=== PATIENT | female | born 1990 | race Asian ===

== ENCOUNTER 2021-05-07 11:59 | Emergency (ER) | payer OTHER, SELFPAY ==
[2021-05-07 12:14] VITALS: BP 126/64; PULSE 83; RESP 14; TEMP 36.7; O2SAT 100; BMI 22.9
--- NOTE | 2021-05-07 12:15 | DI.US.S_ITS ---
PROCEDURE: US OB <= 14 WEEKS FETUS INDICATIONS: BLEEDING AND CRAMPING OUTSIDE/PRIOR DATING DATA: Last menstrual period (LMP): Unknown. First dating scan (date and location): [facility]; May 07, 2021. Estimated date of delivery (CHANCE) from first dating scan: January 01, 2022. The calculations are made using the ultrasound CHANCE of January 01, 2022. TECHNIQUE: Real-time scanning was performed of the fetus and maternal pelvic organs, with image documentation. Endovaginal scanning was also performed to better visualize the fetus and maternal ovaries. COMPARISON: None. FINDINGS: A 0.8 x 0.9 x 0.4 cm hypoechoic area is seen adjacent to the gestational sac, most consistent with a subchorionic hemorrhage. The gestational sac appears to be in the lower uterine segment. Embryo: Mean crown-rump length measures 2.4 mm, compatible with a 5 week, 6 day gestation Heart rate: 80 beats per minute Maternal organs: Hypoechoic lesion within the right ovary, favored to represent a corpus luteal cyst. IMPRESSION: 1. Live intrauterine gestation as detailed above, concerning for early failure. Consider short-term sonographic follow-up as well as correlation with serial quantitative beta HCGs. We strive to produce accurate, complete, and clear reports of imaging services. To assist us in improving patient care, this report was composed using standard report templates and voice recognition software. Therefore, it may contain abnormal punctuation, insertions and/or omissions. Occasional wrong-word or sound-alike substitutions may occur. Though we review the report and make efforts to correct it, we do recommend that the report be read carefully in proper context to recognize any text inaccuracies. Dictated by: Tao Rodriguez M.D. on 05/07/2021 at 13:05 Approved by: Tao Rodriguez M.D. on 05/07/2021 at 13:10
[2021-05-07 12:46] LABS: Add Manual Diff / Slide Review NO; Basophils Absolute Auto 0 /uL (0-100); Basophils Percent Auto 0.4 % (0-2); Eosinophils Absolute Auto 100 /uL (0-450); Eosinophils Percent Auto 1.2 % (2-4); Hematocrit 39.4 % (36-46); Hemoglobin 13.5 g/dL (12.0-16.0); Lymphocytes Absolute Auto 2100 /uL (1100-4500); Lymphocytes Percent Auto 23.4 % (25-40); Mean Corpuscular HGB Conc 34.3 % (30-36); Mean Corpuscular Hemoglobin 30.9 PG (26-34); Mean Corpuscular Volume 90.1 fL (80-100); Monocytes Absolute Auto 600 /uL (0-900); Monocytes Percent Auto 6.9 % (3-14); Neutrophils Absolute Auto 6000 /uL (1500-7000); Neutrophils Percent Auto 68.1 % (50-75); Platelet Count 306 X10^3/uL (150-400); Red Blood Cell Count 4.38 X10^6/uL (4.0-5.2); Red Cell Distribution Width 13.4 % (11.6-14.8); White Blood Cell Count 8.8 X10^3/uL (4.5-11.0)
[2021-05-07 13:04] LABS: Alanine Aminotransferase 19 IU/L (<35); Albumin 4.8 g/dL (3.5-5.0); Albumin Globulin Ratio 1.2 (1.0-2.8); Alkaline Phosphatase 40 U/L (38-126); Aspartate Aminotransferase 25 IU/L (14-36); Bilirubin Total 0.2 mg/dL (0.2-1.3); Blood Urea Nitrogen 11 mg/dL (7-17); Calcium 9.5 mg/dL (8.4-10.2); Carbon Dioxide 28 mmol/L (22-32); Chloride 102 mmol/L (98-107); Estimated Glomerular Filt Rate > 60.0 mL/min (>60); Globulin 3.9 g/dL (1.7-4.1); Glucose 92 mg/dL (70-100); HEMOLYSIS < 15 (0-50); Potassium 3.8 mmol/L (3.4-5.1); Sodium 136 mmol/L (137-145); Total Protein 8.7 g/dL (6.3-8.2)
[2021-05-07 13:45] LABS: HCG Quantitative /Beta subunit 13503 mIU/mL
--- NOTE | 2021-05-07 15:04 | ED_ITS ---
HPI - Female Genitourinary General Chief complaint: Vaginal Bleeding Stated complaint: 6 weeks /spotting last 3 days Time Seen by Provider: 05/07/21 15:03 Source: patient Mode of arrival: Ambulatory History of Present Illness HPI Narrative: Patient is a 31-year-old female currently, about 6 weeks , presenting with vaginal spotting and mild cramping. She usually was seen on the face is who recommended that she go for further evaluation. She says that she is having some spotting when she wipes. No significant cramping. She has been feeling nauseous but no significant vomiting. Related Data Allergies Allergy/AdvReac Type Severity Reaction Status Date / Time No Known Drug Allergies Allergy Verified 05/07/21 12:17 Review of Systems Review of Systems Narrative: GENERAL: Denies chills, fatigue, malaise, fever, sweats, travel HEENT: Denies sinus pain, ear pain, sore throat, difficulty swallowing, neck pain RESPIRATORY: Denies dyspnea, cough, wheezing, hemoptysis, sputum. CARDIOVASCULAR: Denies chest pain, palpitations, orthopnea, edema GASTROINTESTINAL: Denies nausea, vomiting, abdominal pain, diarrhea, constipation, melena. 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 MUSCULOSKELETAL: Denies weakness, joint pain, or bony pain SKIN: No rash, no erythema, no pruritus NEUROLOGIC: Denies weakness, dizziness, headache, numbness, change in speech, confusion PSYCHIATRIC: No concerning psychosocial issues. 12 point review of systems is negative except for those stated above and HPI Patient History alcohol intake frequency: holidays/special occasions only Substance Use Type: does not use Exam Initial Vital Signs Initial Vital Signs: Vital Signs Temperature 98.0 F 05/07/21 12:14 Pulse Rate 83 05/07/21 12:14 Respiratory Rate 14 05/07/21 12:14 Blood Pressure 126/64 05/07/21 12:14 Pulse Oximetry 100 05/07/21 12:14 GENERAL: Alert well-appearing 31-year-old female HEENT: Head atraumatic,EOMI, pupils reactive, face symmetric, [moist] mucous membranes CARDIOVASCULAR: Regular rate and rhythm without murmurs, rubs or gallops. RESPIRATORY: Breath sounds equal bilaterally, no wheezes rales or rhonchi. ABDOMEN: Soft, nontender. Normoactive bowel sounds all 4 quadrants. No guarding or rebound. EXTREMITIES: Normal range of motion, no clubbing or edema. Neurovascularly intact NEUROLOGICAL: Alert and oriented x4.Normal gait and speech. SKIN: Warm, dry, no laceration, no petechiae, no rashes or lesions. Course Orders Ordered: ED Orders 05/07/21 12:15 US OB <= 14 weeks fetus Stat 05/07/21 12:30 ABO RH Type Stat Complete Blood Count AUTO DIFF Stat Comprehensive Metabolic Panel Stat HCG Quantitative /Beta subunit Stat Vital Signs Vital signs: Vital Signs - 8 hr 05/07/21 12:14 05/07/21 15:29 Temperature 98.0 F Pulse Rate 83 82 Respiratory Rate 14 18 Blood Pressure 126/64 117/62 Pulse Oximetry 100 100 MDM - Female Genitourinary Lab Data Result diagrams: 05/07/21 12:30 05/07/21 12:30 Labs: Lab Results 05/07/21 05/07/21 05/07/21 Range/Units 12:30 12:30 12:30 WBC 8.8 (4.5-11.0) X10^3/uL RBC 4.38 (4.0-5.2) X10^6/uL Hgb 13.5 (12.0-16.0) g/dL Hct 39.4 (36-46) % MCV 90.1 (80-100) fL MCH 30.9 (26-34) PG MCHC 34.3 (30-36) % RDW 13.4 (11.6-14.8) % Plt Count 306 (150-400) X10^3/uL Neut % (Auto) 68.1 (50-75) % Lymph % (Auto) 23.4 L (25-40) % [place] % (Auto) 6.9 (3-14) % Eos % (Auto) 1.2 L (2-4) % Baso % (Auto) 0.4 (0-2) % Neut # (Auto) 6000 (5719-7198) /uL Lymph # (Auto) 2100 (8146-5129) /uL [place] # (Auto) 600 (0-900) /uL Eos # (Auto) 100 (0-450) /uL Baso # (Auto) 0 (0-100) /uL Sodium 136 L (137-145) mmol/L Potassium 3.8 (3.4-5.1) mmol/L Chloride 102 (98-107) mmol/L Carbon Dioxide 28 (22-32) mmol/L BUN 11 (7-17) mg/dL Creatinine 0.58 (0.52-1.04) mg/dL Estimated GFR > 60.0 (>60) mL/min BUN/Creatinine Ratio 19.0 (6-22) Glucose 92 (70-100) mg/dL Calcium 9.5 (8.4-10.2) mg/dL Total Bilirubin 0.2 (0.2-1.3) mg/dL AST 25 (14-36) IU/L ALT 19 (<35) IU/L Alkaline Phosphatase 40 (38-126) U/L Total Protein 8.7 H (6.3-8.2) g/dL Albumin 4.8 (3.5-5.0) g/dL Globulin 3.9 (1.7-4.1) g/dL Albumin/Globulin Ratio 1.2 (1.0-2.8) HCG, Quant 53090 mIU/mL Blood Type A Positive Point of Care Testing Test Results Positive Urine Dip Bedside Urine Glucose Negative Bedside Urine Bilirubin - Negative Bedside Urine Ketone - Negative Urine Specific Rydal 1.010 Bedside Urine Occult Blood - Negative Bedside Urine pH 6.0 Bedside Urine Protein - Negative Bedside Urine Urobilinogen - Negative Bedside Urine Nitrite - Negative Bedside Urine Leukocytes - Negative Esterase Imaging Data US - OB: Radiologist's Impression: PROCEDURE:? US OB <= 14 WEEKS FETUS ? INDICATIONS:? BLEEDING AND CRAMPING ? OUTSIDE/PRIOR DATING DATA:? Last menstrual period (LMP):? Unknown.? First dating scan (date and location):? [facility]; May 07, 2021.? Estimated date of delivery (CHANCE) from first dating scan:? January 01, 2022. The calculations are made using the ultrasound CHANCE of January 01, 2022. ? TECHNIQUE:? Real-time scanning was performed of the fetus and maternal pelvic organs, with image documentation.? Endovaginal scanning was also performed to better visualize the fetus and maternal ovaries.? ? COMPARISON:? None. ? FINDINGS:? A 0.8 x 0.9 x 0.4 cm hypoechoic area is seen adjacent to the gestational sac, most consistent with a subchorionic hemorrhage.? The gestational sac appears to be in the lower uterine segment. ? Embryo:? Mean crown-rump length measures 2.4 mm, compatible with a 5 week, 6 day gestation Heart rate:? 80 beats per minute ? Maternal organs:? Hypoechoic lesion within the right ovary, favored to represent a corpus luteal cyst. ? ? IMPRESSION:? 1. Live intrauterine gestation as detailed above, concerning for early failure. ?Consider short-term sonographic follow-up as well as correlation with serial quantitative beta HCGs. ? We strive to produce accurate, complete, and clear reports of imaging services. To assist us in improving patient care, this report was composed using standard report templates and voice recognition software. Therefore, it may contain abnormal punctuation, insertions and/or omissions. Occasional wrong-word or sound-alike substitutions may occur. Though we review the report and make efforts to correct it, we do recommend that the report be read carefully in proper context to recognize any text inaccuracies. ? Dictated by: Tao Rodriguez M.D. on 05/07/2021 at 13:05 ? ? MDM Narrative Medical decision making narrative: Patient is having some mild cramping hCG elevated at 13,000 thousand. However ultrasound does show bradycardia and possible early failure. I have discussed this with her. I recommend that she have close outpatient follow-up. She has actually been seen on the face. This is a wanted though a surprise she was told that she would have difficulty getting . Discussion with her on when to return to ED. All questions have been answered. Discharge Plan Departure Patient Disposition: Home Clinical Impression: Threatened Instructions: Threatened Miscarriage Activity Restrictions/Additional Instructions: [id number] *You have been diagnosed with threatened miscarriage *What to do: It is possibly of early miscarriage however it is impossible to tell at this time. 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
[2021-05-07 15:29] VITALS: BP 117/62; PULSE 82; RESP 18; O2SAT 100
== END 2021-05-07 15:30 | disposition home or self-care (01) ==
PROVIDERS: Emergency Provider Emergency Medicine
DX: O20.0 Threatened abortion (principal); O36.8310 Maternal care for abnormalities of the fetal heart rate or rhythm, first trimester, not applicable or unspecified; Z3A.01 Less than 8 weeks gestation of pregnancy
CPT/HCPCS: 36415; 76801; 76817; 80053; 81003; 81025; 84702; 85025; 86900; 86901; 99282; 99283

== ENCOUNTER → 2021-08-08 09:06 | Outpatient (CLI) | payer OTHER, SELFPAY ==
[2021-08-10 20:57] LABS: AFP, Serum 66.6 ng/mL (.); Inhibin A, Dimeric 135.54 pg/mL (.); Inhibin A, MoM 0.71 (.); Maternal Ethnicity Other (.); Maternal Weight 128 lbs (.); Number of Fetuses No (.); OSBR Risk 1 IN 10000 (.); Results Report (.); Test Results *Screen Negative* (.); hCG, MoM 0.99 (.); hCG, Serum 29035 mIU/mL (.)
== END ==
PROVIDERS: Referring Provider Obstetrics & Gynecology; Visit Provider Obstetrics & Gynecology
DX: Z34.02 Encounter for supervision of normal first pregnancy, second trimester (principal)
CPT/HCPCS: 36415; 82105; 82677; 84702; 86336

== ENCOUNTER → 2021-10-01 16:02 | Outpatient (CLI) | payer OTHER, SELFPAY ==
[2021-10-01 17:26] LABS: Hematocrit 34.3 % (36-46); Hemoglobin 11.7 g/dL (12.0-16.0)
[2021-10-01 17:58] LABS: GTT (PREG) 1 Hour PP 50gm Dose 155 mg/dL (76-139)
== END ==
PROVIDERS: PCP Student in an Organized Health Care Education/Training Program; Referring Provider Obstetrics & Gynecology; Visit Provider Obstetrics & Gynecology
DX: Z34.02 Encounter for supervision of normal first pregnancy, second trimester (principal); Z3A.26 26 weeks gestation of pregnancy
CPT/HCPCS: 36415; 82950; 85014; 85018; 86850

== ENCOUNTER 2021-10-03 14:58 | Inpatient (IN) | payer OTHER, SELFPAY ==
[2021-10-03] VITALS (9 sets, daily range): BP systolic 104–112; BP diastolic 55–65; PULSE 85–104; RESP 14–26; TEMP 36.1–36.9; O2SAT 98–100; BMI 24.7
[2021-10-03 15:35] LABS: COVID19 -Nasal RAPID Negative (Negative)
--- NOTE | 2021-10-03 15:59 | DI.US.S_ITS ---
PROCEDURE: US OB LIMITED INDICATIONS: CX, GROWTH, PLACENTA OUTSIDE/PRIOR DATING DATA: Last menstrual period (LMP): Unknown. LMP-based estimated date of delivery (CHANCE): Not applicable. First dating scan (date and location): May 07, 2021. Estimated date of delivery (CHANCE) from first dating scan: January 01, 2022. TECHNIQUE: Real-time scanning was performed of the fetus, with image documentation and biometric measurements. Endovaginal scanning: Not performed COMPARISON: None. FINDINGS: General: A single living intrauterine gestation is present. Presentation: Vertex. Placenta: Placental position is posterior , without previa. There is low lying placenta with the edge of the placenta to the internal cervical os measuring approximately 0.8 cm. Amniotic fluid index: 13.6 cm, normal range is 5-24 cm. Single deepest vertical pocket is 4.2 cm. heart rate: 158 beats per minute. Maternal cervical canal: 4 cm long. Normal lower limit is 2.5 cm. biometrics: Biparietal diameter: 6.8 cm, 27 weeks and 2 days Head circumference: 25.6 cm, 27 weeks and 6 days Abdominal circumference: 23.2 cm, 27 weeks and 4 days Femur length: 5.3 cm, 28 weeks and 0 days Clinically estimated gestational age: 27 weeks and 1 day Composite gestational age from present scan: 27 weeks and 5 days Estimated weight and percentile: 1115 g which correlates with the 61st percentile based off gestational age. Other: Right maternal ovary is unremarkable. Left maternal ovary is not visualized. Mild right renal pelviectasis of the maternal kidney. Small renal cyst measuring 8 mm. IMPRESSION: Single living intrauterine gestation with estimated sonographic gestational age of approximately 27 weeks and 5 days. Estimated weight of approximately 1115 g which correlates with the 61st percentile based off gestational age. No evidence for placenta previa; however, there is a low lying placenta with the edge of the placenta to the internal cervical os measuring approximately 0.8 cm. Mild right renal pelviectasis of the maternal kidney. Maternal cervical length measures 4.0 cm. Four-quadrant EMILEE measures 13.6 cm. Largest vertical pocket measures 4.2 cm. We strive to produce accurate, complete, and clear reports of imaging services. To assist us in improving patient care, this report was composed using standard report templates and voice recognition software. Therefore, it may contain abnormal punctuation, insertions and/or omissions. Occasional wrong-word or sound-alike substitutions may occur. Though we review the report and make efforts to correct it, we do recommend that the report be read carefully in proper context to recognize any text inaccuracies. Dictated by: Dexter Montez M.D. on 10/03/2021 at 17:13 Approved by: Dexter Montez M.D. on 10/03/2021 at 17:23
[2021-10-03] MEDS: SODIUM CHLORIDE 0.9% 1,000 ML 1000 ML IV ×2 (16:03→17:27)
[2021-10-03 16:16] LABS: Add Manual Diff / Slide Review NO; Basophils Absolute Auto 0 /uL (0-100); Basophils Percent Auto 0.2 % (0-2); Eosinophils Absolute Auto 0 /uL (0-450); Eosinophils Percent Auto 0.1 % (2-4); Hematocrit 34.2 % (36-46); Hemoglobin 11.7 g/dL (12.0-16.0); Lymphocytes Absolute Auto 700 /uL (1100-4500); Lymphocytes Percent Auto 4.3 % (25-40); Mean Corpuscular HGB Conc 34.1 % (30-36); Mean Corpuscular Hemoglobin 30.1 PG (26-34); Mean Corpuscular Volume 88.2 fL (80-100); Monocytes Absolute Auto 500 /uL (0-900); Monocytes Percent Auto 2.8 % (3-14); Neutrophils Absolute Auto 15200 /uL (1500-7000); Neutrophils Percent Auto 92.6 % (50-75); Platelet Count 217 X10^3/uL (150-400); Red Blood Cell Count 3.88 X10^6/uL (4.0-5.2); Red Cell Distribution Width 13.6 % (11.6-14.8); White Blood Cell Count 16.4 X10^3/uL (4.5-11.0)
[2021-10-03 16:22] LABS: Creatine Kinase 32 U/L (30-135)
[2021-10-03 16:24] LABS: Alanine Aminotransferase 16 IU/L (<35); Albumin 4.1 g/dL (3.5-5.0); Albumin Globulin Ratio 1.2 (1.0-2.8); Alkaline Phosphatase 66 U/L (38-126); Aspartate Aminotransferase 26 IU/L (14-36); BUN Creatinine Ratio 13.2 (6-22); Bilirubin Total 0.3 mg/dL (0.2-1.3); Blood Urea Nitrogen 7 mg/dL (7-17); Carbon Dioxide 22 mmol/L (22-32); Chloride 101 mmol/L (98-107); Estimated Glomerular Filt Rate > 60 mL/min (>60); Globulin 3.4 g/dL (1.7-4.1); Glucose 136 mg/dL (70-100); HEMOLYSIS < 15 (0-50); Magnesium 1.8 mg/dL (1.6-2.3); Potassium 3.8 mmol/L (3.4-5.1); Sodium 133 mmol/L (137-145); Total Protein 7.5 g/dL (6.3-8.2)
[2021-10-03] MEDS: ACETAMINOPHEN 325 MG TABLET 975 MG PO ×2 (16:28→22:15)
[2021-10-03 16:34] LABS: Troponin I < 0.012 ng/mL (0.01-0.034)
--- NOTE | 2021-10-03 16:35 | ED_ITS ---
HPI - <KIRK Miramontes - Last Filed: 10/03/21 18:55> General Chief complaint: Shortness of Breath/Dyspnea Stated complaint: Low Blood Sugar, Tachy Time Seen by Provider: 10/03/21 15:48 Source: patient and family Mode of arrival: Ambulatory Limitations: no limitations History of Present Illness HPI Narrative: This is a 31-year-old female who is 27 weeks presents to the emergency department complaining of fatigue, chills, right-sided flank pain which started earlier today with an episode of diaphoresis and tachycardia while in [facility] being evaluated today. Patient denies any dysuria, recent illness, states that she has felt chills, bloating, became short of breath at 1040 in the morning with cold fingertips and states that she feels anxious and h er heart rate is fast. Her primary care provider is Ivette Wasserman, her OBGYN is Dr. Colon. [facility] called and mentioned concern for PE. Patient endorses shallow breathing, denies any wheezing or difficulty breathing, states that she feels fatigued, and has new right-sided flank pain. She denies any abnormal vaginal discharge, states that it is clear, she denies any dysuria, urinary frequency, urgency, nausea or vomiting, other back pain, Related Data Home Medications Medication Instructions Recorded Confirmed prenat.vits,jason,[id number] 1 tab PO DAILY 08/07/21 10/03/21 triamcinolone acetonide 0.1 % 1 applic TOPICAL DAILY 08/08/21 10/03/21 topical cream Previous Rx's Medication Instructions Recorded ampicillin 500 mg capsule 500 mg PO QID #28 cap 10/04/21 Allergies Allergy/AdvReac Type Severity Reaction Status Date / Time No Known Drug Allergies Allergy Verified 09/17/21 11:43 Review of Systems <KIRK Miramontes - Last Filed: 10/03/21 18:55> Review of Systems Narrative: General: denies fever, endorses having chills which started at 1040 Head/Neck: Endorses headache, denies neck pain Eyes: denies visual changes, eye pain Cardio: denies chest pain, palpitations Respiratory: Endorses shallow breathing, denies difficulty breathing, wheezing, or cough GI: denies abdominal pain, nausea, vomiting, or diarrhea, endorses right flank pain with palpation : denies dysuria, hematuria MSK: denies new joint pain, muscle weakness or swelling Skin: denies rash, itching or wound, denies any extremity swelling which is in her Neuro: denies numbness, tingling, dizziness Exam <KIRK Miramontes - Last Filed: 10/03/21 18:55> Narrative Exam Narrative: Independently reviewed vitals signs and nursing notes. General: Awake, alert, nontoxic, no cardiorespiratory distress, anxious Head/Neck: Atraumatic, neck supple, face is flushed Eyes: EOMI, conjunctiva normal, vision is grossly normal and equal bilaterally Nose: nares patent, no rhinorrhea Mouth/Throat: moist mucus membranes, posterior pharynx without erythema or lesion Cardio: Sinus tachycardia without ectopy, no peripheral edema, warm extremities, brisk cap refill Respiratory: respirations unlabored without wheezing, stridor, or rales. No retractions, hypoxia or tachypnea GI: Abdomen soft, gravid, fundus above the umbilicus, nontender to palpation x4 quadrants, no guarding or rebound tenderness, right flank tenderness to palpation MSK: Moves all extremities, neurovascularly intact, range of motion without de ficit Skin: Normal capillary refill, no rash, cheeks are flushed Neuro: Normal speech and cognition, normal gait, patient is anxious and tearful but pleasant and cooperative Initial Vital Signs Initial Vital Signs: Vital Signs Temperature 97 F L 10/03/21 15:02 Pulse Rate 100 H 10/03/21 15:02 Respiratory Rate 26 H 10/03/21 15:02 Blood Pressure 111/65 10/03/21 15:02 Pulse Oximetry 99 10/03/21 15:02 <Chacha Downs DO - Last Filed: 10/05/21 18:56> Initial Vital Signs Initial Vital Signs: Vital Signs Temperature 97 F L 10/03/21 15:02 Pulse Rate 100 H 10/03/21 15:02 Respiratory Rate 26 H 10/03/21 15:02 Blood Pressure 111/65 10/03/21 15:02 Pulse Oximetry 99 10/03/21 15:02 Course <KIRK Miramontes - Last Filed: 10/03/21 18:55> Course Course Narrative: Consultation with Dr. Restrepo who is on-call for Dr. Colon and will be admitting for pyelonephritis, IV antibiotics, and care, she accepts patient for admission for pyelonephritis. She will follow up on labs, orders, and patient will be admitted to [facility] floor under Dr. Restrepo for pyelonephritis. Orders Ordered: Discontinued Medications Acetaminophen (Acetaminophen 325 Mg Tablet) 975 mg PO NOW ONE Stop: 10/03/21 16:00 Last Admin: 10/03/21 16:28 Dose: 975 mg Documented by: NAOMIEOR Acetaminophen (Acetaminophen 325 Mg Tablet) 975 mg PO Q8H PRN PRN Reason: pain Last Admin: 10/04/21 09:18 Dose: 975 mg Documented by: Admin: 10/03/21 22:15 Dose: 975 mg Documented by: RUSLAN Sodium Chloride (Normal Saline 0.9%) 1,000 mls @ 1,000 mls/hr IV BOLUS ONE Stop: 10/03/21 16:58 Last Infusion: 10/03/21 17:12 Dose: 0 mls/hr Documented by: Admin: 10/03/21 16:03 Dose: 1,000 mls/hr Documented by: ATAYLOR Sodium Chloride (Normal Saline 0.9%) 1,000 mls @ 1,000 mls/hr IV BOLUS ONE Stop: 10/03/21 16:58 Last Infusion: 10/03/21 18:45 Dose: 0 mls/hr Documented by: Admin: 10/03/21 17:27 Dose: 1,000 mls/hr Documented by: ATAYLOR Ceftriaxone Sodium 1,000 mg/ (Sodium Chloride) 100 mls @ 200 mls/hr IV NOW ONE Stop: 10/03/21 16:51 Last Infusion: 10/03/21 18:50 Dose: 0 mls/hr Documented by: Admin: 10/03/21 18:14 Dose: 200 mls/hr Documented by: ATAYLOR Ceftriaxone Sodium 1,000 mg/ (Sodium Chloride) 100 mls @ 200 mls/hr IV Q24H CHERYL Last Admin: 10/03/21 19:24 Dose: Not Given Documented by: ATAYLOR Lactated Ringer's (Lactated Ringers) 1,000 mls @ 125 mls/hr IV CONT CHERYL Last Admin: 10/04/21 14:11 Dose: 125 mls/hr Documented by: Infusion: 10/04/21 13:59 Dose: 125 mls/hr Documented by: Admin: 10/04/21 05:59 Dose: 125 mls/hr Documented by: Infusion: 10/04/21 04:24 Dose: 125 mls/hr Documented by: Admin: 10/03/21 20:24 Dose: 125 mls/hr Documented by: GORDON Ceftriaxone Sodium 1,000 mg/ (Sodium Chloride) 100 mls @ 200 mls/hr IV Q24H [facility] Last Admin: 10/04/21 17:28 Dose: 200 mls/hr Documented by: LAURA Vit/Calcium/Iron/Folic Ac ( Vit,Calc/Iron/Folic 1 Tablet) 1 tab PO DAILY [facility] Last Admin: 10/04/21 09:18 Dose: 1 tab Documented by: LAURA Sodium Chloride (Sodium Chloride 0.9% Flush) 10 ml IV PRN PRN PRN Reason: Flush Sodium Chloride (Sodium Chloride 0.9% Flush) 10 ml IV BID [facility] Vital Signs Vital signs: Vital Signs - 8 hr 10/03/21 15:02 Temperature 97 F L Pulse Rate 100 H Respiratory Rate 26 H Blood Pressure 111/65 Pulse Oximetry 99 <Chacha Downs DO - Last Filed: 10/05/21 18:56> Orders Ordered: Discontinued Medications Acetaminophen (Acetaminophen 325 Mg Tablet) 975 mg PO NOW ONE Stop: 10/03/21 16:00 Last Admin: 10/03/21 16:28 Dose: 975 mg Documented by: DEN Acetaminophen (Acetaminophen 325 Mg Tablet) 975 mg PO Q8H PRN PRN Reason: pain Last Admin: 10/04/21 09:18 Dose: 975 mg Documented by: Admin: 10/03/21 22:15 Dose: 975 mg Documented by: RUSLAN Sodium Chloride (Normal Saline 0.9%) 1,000 mls @ 1,000 mls/hr IV BOLUS ONE Stop: 10/03/21 16:58 Last Infusion: 10/03/21 17:12 Dose: 0 mls/hr Documented by: Admin: 10/03/21 16:03 Dose: 1,000 mls/hr Documented by: ATAABBEYOR Sodium Chloride (Normal Saline 0.9%) 1,000 mls @ 1,000 mls/hr IV BOLUS ONE Stop: 10/03/21 16:58 Last Infusion: 10/03/21 18:45 Dose: 0 mls/hr Documented by: Admin: 10/03/21 17:27 Dose: 1,000 mls/hr Documented by: ATAABBEYOR Ceftriaxone Sodium 1,000 mg/ (Sodium Chloride) 100 mls @ 200 mls/hr IV NOW ONE Stop: 10/03/21 16:51 Last Infusion: 10/03/21 18:50 Dose: 0 mls/hr Documented by: Admin: 10/03/21 18:14 Dose: 200 mls/hr Documented by: NAOMIEOR Ceftriaxone Sodium 1,000 mg/ (Sodium Chloride) 100 mls @ 200 mls/hr IV Q24H [facility] Last Admin: 10/03/21 19:24 Dose: Not Given Documented by: DEN Lactated Ringer's (Lactated Ringers) 1,000 mls @ 125 mls/hr IV CONT [facility] Last Admin: 10/04/21 14:11 Dose: 125 mls/hr Documented by: Infusion: 10/04/21 13:59 Dose: 125 mls/hr Documented by: Admin: 10/04/21 05:59 Dose: 125 mls/hr Documented by: Infusion: 10/04/21 04:24 Dose: 125 mls/hr Documented by: Admin: 10/03/21 20:24 Dose: 125 mls/hr Documented by: GORDON Ceftriaxone Sodium 1,000 mg/ (Sodium Chloride) 100 mls @ 200 mls/hr IV Q24H [facility] Last Admin: 10/04/21 17:28 Dose: 200 mls/hr Documented by: LAURA Vit/Calcium/Iron/Folic Ac ( Vit,Calc/Iron/Folic 1 Tablet) 1 tab PO DAILY [facility] Last Admin: 10/04/21 09:18 Dose: 1 tab Documented by: LAURA Sodium Chloride (Sodium Chloride 0.9% Flush) 10 ml IV PRN PRN PRN Reason: Flush Sodium Chloride (Sodium Chloride 0.9% Flush) 10 ml IV BID CHERYL Vital Signs Vital signs: Vital Signs - 8 hr 10/03/21 15:02 Temperature 97 F L Pulse Rate 100 H Respiratory Rate 26 H Blood Pressure 111/65 Pulse Oximetry 99 MDM - OB/Uterine Contractions <KIRK Miramontes - Last Filed: 10/03/21 18:55> Lab Data Result diagrams: 10/04/21 06:38 10/04/21 06:38 Labs: Lab Results 10/03/21 10/03/21 10/03/21 Range/Units 15:12 15:53 15:53 WBC 16.4 H (4.5-11.0) X10^3/uL RBC 3.88 L (4.0-5.2) X10^6/uL Hgb 11.7 L (12.0-16.0) g/dL Hct 34.2 L (36-46) % MCV 88.2 (80-100) fL MCH 30.1 (26-34) PG MCHC 34.1 (30-36) % RDW 13.6 (11.6-14.8) % Plt Count 217 (150-400) X10^3/uL Neut % (Auto) 92.6 H (50-75) % Lymph % (Auto) 4.3 L (25-40) % [place] % (Auto) 2.8 L (3-14) % Eos % (Auto) 0.1 L (2-4) % Baso % (Auto) 0.2 (0-2) % Neut # (Auto) 43260 H (1025-8349) /uL Lymph # (Auto) 700 L (1353-5836) /uL [place] # (Auto) 500 (0-900) /uL Eos # (Auto) 0 (0-450) /uL Baso # (Auto) 0 (0-100) /uL D-Dimer (<230) ng/mL Sodium 133 L (137-145) mmol/L Potassium 3.8 (3.4-5.1) mmol/L Chloride 101 (98-107) mmol/L Carbon Dioxide 22 (22-32) mmol/L BUN 7 (7-17) mg/dL Creatinine 0.53 (0.52-1.04) mg/dL Estimated GFR > 60 (>60) mL/min BUN/Creatinine Ratio 13.2 (6-22) Glucose 136 H (70-100) mg/dL Lactate (0.7-2.1) mmol/L Calcium 9.0 (8.4-10.2) mg/dL Magnesium 1.8 (1.6-2.3) mg/dL Total Bilirubin 0.3 (0.2-1.3) mg/dL AST 26 (14-36) IU/L ALT 16 (<35) IU/L Alkaline Phosphatase 66 (38-126) U/L Total Creatine Kinase (30-135) U/L CK-MB (CK-2) CK-MB (CK-2) Rel Index Troponin I (0.01-0.034) ng/mL C-Reactive Protein (<1.0) mg/dL NT-Pro-B Natriuret Pep (<125) pg/mL Total Protein 7.5 (6.3-8.2) g/dL Albumin 4.1 (3.5-5.0) g/dL Globulin 3.4 (1.7-4.1) g/dL Albumin/Globulin Ratio 1.2 (1.0-2.8) Procalcitonin (<0.5) ng/mL Urine Color Urine Appearance Urine pH (4.5-8.0) Ur Specific [place] (1.000-1.035) Urine Protein (Negative) Urine Glucose (UA) (Negative) g/dL Urine Ketones (NEGATIVE) Urine Occult Blood (Negative) Urine Nitrate (Negative) Urine Bilirubin (NEGATIVE) Urine Urobilinogen (0.2) E.U./dL Ur Leukocyte Esterase (NEGATIVE) Urine RBC (0-5/HPF) Urine WBC (0-5/HPF) Ur Squamous Epith Cells (0-5/HPF) Urine Bacteria (None) Ur Culture Indicated? A. baumannii (PCR) (Not Detect) Chlamy pneumoniae PCR (Not Detect) Adenovirus (PCR) (Not Detect) B. pertussis DNA (PCR) (Not Detecte) B.parapertussis DNA PCR (Not Detecte) Geeta albicans (PCR) (Not Detect) C. glabrata (PCR) (Not Detect) C. krusei (PCR) (Not Detect) C. parapsilosis (PCR) (Not Detect) C. tropicalis (PCR) (Not Detect) Ur Chlamydia DNA (PCR) Coronavirus OC43 (PCR) (Not Detect) Coronavirus HKU1 (PCR) (Not Detect) Coronavirus 229E (PCR) (Not Detect) SARS-CoV-2 (PCR) Negative (Negative) Coronavirus NL63 (PCR) (Not Detect) Enterobacteriac sp PCR (Not Detect) E. cloacae complex PCR (Not Detect) Enterococcus sp PCR (Not Detect) E. coli (PCR) (Not Detect) H. influenzae (PCR) (Not Detect) Human Metapneumovir PCR (Not Detect) Influenza Type A (PCR) (Not Detect) Influenza Type B (PCR) (Not Detect) Klebsiella oxytoca PCR (Not Detect) Klebsiella pneumoniae (Not Detect) List. monocytogenes PCR (Not Detect) M. pneumoniae (PCR) (Not Detect) N. meningitidis (PCR) (Not Detect) Parainfluenza 1 (PCR) (Not Detect) Parainfluenza 2 (PCR) (Not Detect) Parainfluenza 3 (PCR) (Not Detect) Parainfluenza 4 (PCR) (Not Detect) Proteus species (PCR) (Not Detect) RSV (PCR) (Not Detect) Entero/Rhino (PCR) (Not Detect) Serratia marcescens PCR (Not Detect) Staphylococcus sp PCR (Not Detect) Staph aureus (PCR) (Not Detect) mecA-Methicil Res Gene Streptococcus sp PCR (Not Detect) Group A Strep (PCR) (Not Detect) Strep agalactiae (PCR) (Not Detect) Strep pneumoniae (PCR) (Not Detect) P. aeruginosa (PCR) (Not Detect) Esperanza/B-Vanco Res Genes KPC-Carbap Res Gene PCR (Not Detect) N gonorrhoeae DNA (PCR) 10/03/21 10/03/21 10/03/21 Range/Units 15:53 15:53 15:53 WBC (4.5-11.0) X10^3/uL RBC (4.0-5.2) X10^6/uL Hgb (12.0-16.0) g/dL Hct (36-46) % MCV (80-100) fL MCH (26-34) PG MCHC (30-36) % RDW (11.6-14.8) % Plt Count (150-400) X10^3/uL Neut % (Auto) (50-75) % Lymph % (Auto) (25-40) % [place] % (Auto) (3-14) % Eos % (Auto) (2-4) % Baso % (Auto) (0-2) % Neut # (Auto) (7364-9660) /uL Lymph # (Auto) (1224-3151) /uL [place] # (Auto) (0-900) /uL Eos # (Auto) (0-450) /uL Baso # (Auto) (0-100) /uL D-Dimer 574 H (<230) ng/mL Sodium (137-145) mmol/L Potassium (3.4-5.1) mmol/L Chloride (98-107) mmol/L Carbon Dioxide (22-32) mmol/L BUN (7-17) mg/dL Creatinine (0.52-1.04) mg/dL Estimated GFR (>60) mL/min BUN/Creatinine Ratio (6-22) Glucose (70-100) mg/dL Lactate 1.3 (0.7-2.1) mmol/L Calcium (8.4-10.2) mg/dL Magnesium (1.6-2.3) mg/dL Total Bilirubin (0.2-1.3) mg/dL AST (14-36) IU/L ALT (<35) IU/L Alkaline Phosphatase (38-126) U/L Total Creatine Kinase 32 (30-135) U/L CK-MB (CK-2) TNP CK-MB (CK-2) Rel Index TNP Troponin I < 0.012 (0.01-0.034) ng/mL C-Reactive Protein (<1.0) mg/dL NT-Pro-B Natriuret Pep (<125) pg/mL Total Protein (6.3-8.2) g/dL Albumin (3.5-5.0) g/dL Globulin (1.7-4.1) g/dL Albumin/Globulin Ratio (1.0-2.8) Procalcitonin (<0.5) ng/mL Urine Color Urine Appearance Urine pH (4.5-8.0) Ur Specific [place] (1.000-1.035) Urine Protein (Negative) Urine Glucose (UA) (Negative) g/dL Urine Ketones (NEGATIVE) Urine Occult Blood (Negative) Urine Nitrate (Negative) Urine Bilirubin (NEGATIVE) Urine Urobilinogen (0.2) E.U./dL Ur Leukocyte Esterase (NEGATIVE) Urine RBC (0-5/HPF) Urine WBC (0-5/HPF) Ur Squamous Epith Cells (0-5/HPF) Urine Bacteria (None) Ur Culture Indicated? A. baumannii (PCR) (Not Detect) Chlamy pneumoniae PCR (Not Detect) Adenovirus (PCR) (Not Detect) B. pertussis DNA (PCR) (Not Detecte) B.parapertussis DNA PCR (Not Detecte) Geeta albicans (PCR) (Not Detect) C. glabrata (PCR) (Not Detect) C. krusei (PCR) (Not Detect) C. parapsilosis (PCR) (Not Detect) C. tropicalis (PCR) (Not Detect) Ur Chlamydia DNA (PCR) Coronavirus OC43 (PCR) (Not Detect) Coronavirus HKU1 (PCR) (Not Detect) Coronavirus 229E (PCR) (Not Detect) SARS-CoV-2 (PCR) (Negative) Coronavirus NL63 (PCR) (Not Detect) Enterobacteriac sp PCR (Not Detect) E. cloacae complex PCR (Not Detect) Enterococcus sp PCR (Not Detect) E. coli (PCR) (Not Detect) H. influenzae (PCR) (Not Detect) Human Metapneumovir PCR (Not Detect) Influenza Type A (PCR) (Not Detect) Influenza Type B (PCR) (Not Detect) Klebsiella oxytoca PCR (Not Detect) Klebsiella pneumoniae (Not Detect) List. monocytogenes PCR (Not Detect) M. pneumoniae (PCR) (Not Detect) N. meningitidis (PCR) (Not Detect) Parainfluenza 1 (PCR) (Not Detect) Parainfluenza 2 (PCR) (Not Detect) Parainfluenza 3 (PCR) (Not Detect) Parainfluenza 4 (PCR) (Not Detect) Proteus species (PCR) (Not Detect) RSV (PCR) (Not Detect) Entero/Rhino (PCR) (Not Detect) Serratia marcescens PCR (Not Detect) Staphylococcus sp PCR (Not Detect) Staph aureus (PCR) (Not Detect) mecA-Methicil Res Gene Streptococcus sp PCR (Not Detect) Group A Strep (PCR) (Not Detect) Strep agalactiae (PCR) (Not Detect) Strep pneumoniae (PCR) (Not Detect) P. aeruginosa (PCR) (Not Detect) [place]/B-Vanco Res Genes KPC-Carbap Res Gene PCR (Not Detect) N gonorrhoeae DNA (PCR) 10/03/21 10/03/21 10/03/21 Range/Units 16:15 16:23 16:23 WBC (4.5-11.0) X10^3/uL RBC (4.0-5.2) X10^6/uL Hgb (12.0-16.0) g/dL Hct (36-46) % MCV (80-100) fL MCH (26-34) PG MCHC (30-36) % RDW (11.6-14.8) % Plt Count (150-400) X10^3/uL Neut % (Auto) (50-75) % Lymph % (Auto) (25-40) % [place] % (Auto) (3-14) % Eos % (Auto) (2-4) % Baso % (Auto) (0-2) % Neut # (Auto) (6794-0999) /uL Lymph # (Auto) (7606-6183) /uL [place] # (Auto) (0-900) /uL Eos # (Auto) (0-450) /uL Baso # (Auto) (0-100) /uL D-Dimer (<230) ng/mL Sodium (137-145) mmol/L Potassium (3.4-5.1) mmol/L Chloride (98-107) mmol/L Carbon Dioxide (22-32) mmol/L BUN (7-17) mg/dL Creatinine (0.52-1.04) mg/dL Estimated GFR (>60) mL/min BUN/Creatinine Ratio (6-22) Glucose (70-100) mg/dL Lactate (0.7-2.1) mmol/L Calcium (8.4-10.2) mg/dL Magnesium (1.6-2.3) mg/dL Total Bilirubin (0.2-1.3) mg/dL AST (14-36) IU/L ALT (<35) IU/L Alkaline Phosphatase (38-126) U/L Total Creatine Kinase (30-135) U/L CK-MB (CK-2) CK-MB (CK-2) Rel Index Troponin I (0.01-0.034) ng/mL C-Reactive Protein 4.9 H (<1.0) mg/dL NT-Pro-B Natriuret Pep 30 (<125) pg/mL Total Protein (6.3-8.2) g/dL Albumin (3.5-5.0) g/dL Globulin (1.7-4.1) g/dL Albumin/Globulin Ratio (1.0-2.8) Procalcitonin 0.44 (<0.5) ng/mL Urine Color Urine Appearance Urine pH (4.5-8.0) Ur Specific [place] (1.000-1.035) Urine Protein (Negative) Urine Glucose (UA) (Negative) g/dL Urine Ketones (NEGATIVE) Urine Occult Blood (Negative) Urine Nitrate (Negative) Urine Bilirubin (NEGATIVE) Urine Urobilinogen (0.2) E.U./dL Ur Leukocyte Esterase (NEGATIVE) Urine RBC (0-5/HPF) Urine WBC (0-5/HPF) Ur Squamous Epith Cells (0-5/HPF) Urine Bacteria (None) Ur Culture Indicated? A. baumannii (PCR) (Not Detect) Chlamy pneumoniae PCR Not detected (Not Detect) Adenovirus (PCR) Not detected (Not Detect) B. pertussis DNA (PCR) Not detected (Not Detecte) B.parapertussis DNA PCR Not detected (Not Detecte) Geeta albicans (PCR) (Not Detect) C. glabrata (PCR) (Not Detect) C. krusei (PCR) (Not Detect) C. parapsilosis (PCR) (Not Detect) C. tropicalis (PCR) (Not Detect) Ur Chlamydia DNA (PCR) Coronavirus OC43 (PCR) Not detected (Not Detect) Coronavirus HKU1 (PCR) Not detected (Not Detect) Coronavirus 229E (PCR) Not detected (Not Detect) SARS-CoV-2 (PCR) Not detected (Negative) Coronavirus NL63 (PCR) Not detected (Not Detect) Enterobacteriac sp PCR (Not Detect) E. cloacae complex PCR (Not Detect) Enterococcus sp PCR (Not Detect) E. coli (PCR) (Not Detect) H. influenzae (PCR) (Not Detect) Human Metapneumovir PCR Not detected (Not Detect) Influenza Type A (PCR) Not detected (Not Detect) Influenza Type B (PCR) Not detected (Not Detect) Klebsiella oxytoca PCR (Not Detect) Klebsiella pneumoniae (Not Detect) List. monocytogenes PCR (Not Detect) M. pneumoniae (PCR) Not detected (Not Detect) N. meningitidis (PCR) (Not Detect) Parainfluenza 1 (PCR) Not detected (Not Detect) Parainfluenza 2 (PCR) Not detected (Not Detect) Parainfluenza 3 (PCR) Not detected (Not Detect) Parainfluenza 4 (PCR) Not detected (Not Detect) Proteus species (PCR) (Not Detect) RSV (PCR) Not detected (Not Detect) Entero/Rhino (PCR) Not detected (Not Detect) Serratia marcescens PCR (Not Detect) Staphylococcus sp PCR (Not Detect) Staph aureus (PCR) (Not Detect) mecA-Methicil Res Gene Streptococcus sp PCR (Not Detect) Group A Strep (PCR) (Not Detect) Strep agalactiae (PCR) (Not Detect) Strep pneumoniae (PCR) (Not Detect) P. aeruginosa (PCR) (Not Detect) [place]/B-Vanco Res Genes KPC-Carbap Res Gene PCR (Not Detect) N gonorrhoeae DNA (PCR) 10/03/21 10/03/21 10/03/21 Range/Units 17:07 17:07 17:33 WBC (4.5-11.0) X10^3/uL RBC (4.0-5.2) X10^6/uL Hgb (12.0-16.0) g/dL Hct (36-46) % MCV (80-100) fL MCH (26-34) PG MCHC (30-36) % RDW (11.6-14.8) % Plt Count (150-400) X10^3/uL Neut % (Auto) (50-75) % Lymph % (Auto) (25-40) % [place] % (Auto) (3-14) % Eos % (Auto) (2-4) % Baso % (Auto) (0-2) % Neut # (Auto) (8284-1196) /uL Lymph # (Auto) (3432-3824) /uL [place] # (Auto) (0-900) /uL Eos # (Auto) (0-450) /uL Baso # (Auto) (0-100) /uL D-Dimer (<230) ng/mL Sodium (137-145) mmol/L Potassium (3.4-5.1) mmol/L Chloride (98-107) mmol/L Carbon Dioxide (22-32) mmol/L BUN (7-17) mg/dL Creatinine (0.52-1.04) mg/dL Estimated GFR (>60) mL/min BUN/Creatinine Ratio (6-22) Glucose (70-100) mg/dL Lactate (0.7-2.1) mmol/L Calcium (8.4-10.2) mg/dL Magnesium (1.6-2.3) mg/dL Total Bilirubin (0.2-1.3) mg/dL AST (14-36) IU/L ALT (<35) IU/L Alkaline Phosphatase (38-126) U/L Total Creatine Kinase (30-135) U/L CK-MB (CK-2) CK-MB (CK-2) Rel Index Troponin I (0.01-0.034) ng/mL C-Reactive Protein (<1.0) mg/dL NT-Pro-B Natriuret Pep (<125) pg/mL Total Protein (6.3-8.2) g/dL Albumin (3.5-5.0) g/dL Globulin (1.7-4.1) g/dL Albumin/Globulin Ratio (1.0-2.8) Procalcitonin (<0.5) ng/mL Urine Color Yellow Urine Appearance Clear Urine pH 6.5 (4.5-8.0) Ur Specific [place] <=1.005 (1.000-1.035) Urine Protein Negative (Negative) Urine Glucose (UA) Negative (Negative) g/dL Urine Ketones Negative (NEGATIVE) Urine Occult Blood Trace-intact (Negative) Urine Nitrate Positive H (Negative) Urine Bilirubin Negative (NEGATIVE) Urine Urobilinogen 0.2 (0.2) E.U./dL Ur Leukocyte Esterase Trace H (NEGATIVE) Urine RBC None seen (0-5/HPF) Urine WBC 1-5/hpf (0-5/HPF) Ur Squamous Epith Cells 1-5 /hpf (0-5/HPF) Urine Bacteria Many (>30) H (None) Ur Culture Indicated? Cult not indicated A. baumannii (PCR) Not detected (Not Detect) Chlamy pneumoniae PCR (Not Detect) Adenovirus (PCR) (Not Detect) B. pertussis DNA (PCR) (Not Detecte) B.parapertussis DNA PCR (Not Detecte) Geeta albicans (PCR) Not detected (Not Detect) C. glabrata (PCR) Not detected (Not Detect) C. krusei (PCR) Not detected (Not Detect) C. parapsilosis (PCR) Not detected (Not Detect) C. tropicalis (PCR) Not detected (Not Detect) Ur Chlamydia DNA (PCR) Not detected Coronavirus OC43 (PCR) (Not Detect) Coronavirus HKU1 (PCR) (Not Detect) Coronavirus 229E (PCR) (Not Detect) SARS-CoV-2 (PCR) (Negative) Coronavirus NL63 (PCR) (Not Detect) Enterobacteriac sp PCR Detected H (Not Detect) E. cloacae complex PCR Not detected (Not Detect) Enterococcus sp PCR Not detected (Not Detect) E. coli (PCR) Detected H (Not Detect) H. influenzae (PCR) Not detected (Not Detect) Human Metapneumovir PCR (Not Detect) Influenza Type A (PCR) (Not Detect) Influenza Type B (PCR) (Not Detect) Klebsiella oxytoca PCR Not detected (Not Detect) Klebsiella pneumoniae Not detected (Not Detect) List. monocytogenes PCR Not detected (Not Detect) M. pneumoniae (PCR) (Not Detect) N. meningitidis (PCR) Not detected (Not Detect) Parainfluenza 1 (PCR) (Not Detect) Parainfluenza 2 (PCR) (Not Detect) Parainfluenza 3 (PCR) (Not Detect) Parainfluenza 4 (PCR) (Not Detect) Proteus species (PCR) Not detected (Not Detect) RSV (PCR) (Not Detect) Entero/Rhino (PCR) (Not Detect) Serratia marcescens PCR Not detected (Not Detect) Staphylococcus sp PCR Not detected (Not Detect) Staph aureus (PCR) Not detected (Not Detect) mecA-Methicil Res Gene Not Reportable Streptococcus sp PCR Not detected (Not Detect) Group A Strep (PCR) Not detected (Not Detect) Strep agalactiae (PCR) Not detected (Not Detect) Strep pneumoniae (PCR) Not detected (Not Detect) P. aeruginosa (PCR) Not detected (Not Detect) Esperanza/B-Vanco Res Genes Not Reportable KPC-Carbap Res Gene PCR Not detected (Not Detect) N gonorrhoeae DNA (PCR) Not detected Imaging Data US - OB: Radiologist's Impression: PROCEDURE:? US OB LIMITED ? INDICATIONS:? CX, GROWTH, PLACENTA ? OUTSIDE/PRIOR DATING DATA:? Last menstrual period (LMP):? Unknown.? LMP-based estimated date of delivery (CHANCE):? Not applicable.? First dating scan (date and location):? May 07, 2021.? Estimated date of delivery (CHANCE) from first dating scan:? January 01, 2022. ? TECHNIQUE: Real-time scanning was performed of the fetus, with image documentation and biometric measurements.? Endovaginal scanning:? Not performed ? COMPARISON:? None. ? FINDINGS:? ? General:? A single living intrauterine gestation is present.? Presentation:? Vertex.? Placenta:? Placental position is posterior , without previa.? There is low lying placenta with the edge of the placenta to the internal cervical os measuring approxi mately 0.8 cm. ? Amniotic fluid index:? 13.6 cm, normal range is 5-24 cm.? Single deepest vertical pocket is 4.2 cm. heart rate:? 158 beats per minute.? Maternal cervical canal:? 4 cm long.? Normal lower limit is 2.5 cm.? ? biometrics:? Biparietal diameter:? 6.8 cm, 27 weeks and 2 days Head circumference:? 25.6 cm, 27 weeks and 6 days Abdominal circumference:? 23.2 cm, 27 weeks and 4 days Femur length:? 5.3 cm, 28 weeks and 0 days Clinically estimated gestational age:? 27 weeks and 1 day Composite gestational age from present scan:? 27 weeks and 5 days Estimated weight and percentile:? 1115 g which correlates with the 61st percentile based off gestational age. ? Other:? Right maternal ovary is unremarkable.? Left maternal ovary is not visualized.? Mild right renal pelviectasis of the maternal kidney.? Small renal cyst measuring 8 mm.? ? ? IMPRESSION:? Single living intrauterine gestation with estimated sonographic gestational age of approximately 27 weeks and 5 days.? Estimated weight of approximately 1115 g which correlates with the 61st percentile based off gestational age. ? No evidence for placenta previa; however, there is a low lying placenta with the edge of the placenta to the internal cervical os measuring approximately 0.8 cm. ? Mild right renal pelviectasis of the maternal kidney. ? Maternal cervical length measures 4.0 cm. ? Four-quadrant EMILEE measures 13.6 cm.? Largest vertical pocket measures 4.2 cm.? ? We strive to produce accurate, complete, and clear reports of imaging services. To assist us in improving patient care, this report was composed using standard report templates and voice recognition software. Therefore, it may contain abnormal punctuation, insertions and/or omissions. Occasional wrong-word or sound-alike substitutions may occur. Though we review the report and make efforts to correct it, we do recommend that the report be read carefully in proper context to recognize any text inaccuracies. ? Dictated by: Dexter Montez M.D. on 10/03/2021 at 17:13 ? ? Approved by: Dexter Montez M.D. on 10/03/2021 at 17:23 ? MDM Narrative Medical decision making narrative: This is a 31-year-old female who presents to the emergency department after an episode feeling lightheaded, having tachycardia, and having chills which started at 1040 hours today. Patient denies any dysuria, flank pain, urinary urgency or frequency but was found to have UA positive for bacteria, nitrates, white blood cells. She is 27 weeks , , her OBGYN is Dr. Colon, came in for evaluation from [facility] who feared a pulmonary embolism. Patient met seizures criteria when she arrived in the emergency department, she was given 2 L of normal saline for IV hydration. She has a leukocytosis of 16.4 with a left shift, neutrophil count of 15,200, D-dimer is elevated however this is common in , today it is 574. No gross electrolyte abnormalities, sodium was 133 prior to IV hydration. No elevation in liver enzymes, no elevation in troponin or cardiac enzymes, CRP is elevated at 4.9, no lactic acidosis. UA as mentioned is positive for nitrate, leukocyte esterase, bacteria, culture is pending. Blood cultures are also pending. COVID PCR is negative. Obstetric ultrasound shows a single living intrauterine gestation with estimated sonographic gestational age of approximately 27 weeks and five days. Estimated weight of approximately 1115 g which correlates with the 61st percentile based off gestational age. No evidence for placenta previa, there is a low lying placenta with the edge of the placenta to the internal cervical os measuring approximately 0.8 cm. Mild right renal pelviectasis of the maternal kidney, maternal cervical length measures 4.0 cm, four quadrant EMILEE measures 13.6 cm, largest vertical pocket measures 4.2 cm. All of this information was relayed to Dr. Restrepo who is on-call for Dr. Colon. She accepts patient for admission to the Medical/Surgical floor as labor and delivery is full for pyelonephritis, IV antibiotics, and care. Patient understands and agrees, she has been pleasant, improved after IV hydration, her headache came down from an 8/10 down to a 4/10 after Tylenol was given. She denies any nausea vomiting, denies any abdominal cramping. On exam she did have right CVA tenderness, she was afebrile but was tachycardic with tachypnea. Breath sounds are clear throughout all champagne. Dr. Restrepo accepts patient for admission for pyelonephritis under her service and will transfer to room 204. Patient is okay to have a regular diet, Dr. Restrepo requests LR at 0125 an hour following the 2 L of fluid resuscitation, patient can also have Tylenol 975 mg every 8 hours as needed, a.m. labs are ordered patient's COVID PCR was negative, she states that she feels much better this time and her headache has mostly resolved. <Chacha Downs, DO - Last Filed: 10/05/21 18:56> Lab Data Labs: Lab Results 10/03/21 10/03/21 10/03/21 Range/Units 15:12 15:53 15:53 WBC 16.4 H (4.5-11.0) X10^3/uL RBC 3.88 L (4.0-5.2) X10^6/uL Hgb 11.7 L (12.0-16.0) g/dL Hct 34.2 L (36-46) % MCV 88.2 (80-100) fL MCH 30.1 (26-34) PG MCHC 34.1 (30-36) % RDW 13.6 (11.6-14.8) % Plt Count 217 (150-400) X10^3/uL Neut % (Auto) 92.6 H (50-75) % Lymph % (Auto) 4.3 L (25-40) % [place] % (Auto) 2.8 L (3-14) % Eos % (Auto) 0.1 L (2-4) % Baso % (Auto) 0.2 (0-2) % Neut # (Auto) 58494 H (7792-6851) /uL Lymph # (Auto) 700 L (9495-5231) /uL [place] # (Auto) 500 (0-900) /uL Eos # (Auto) 0 (0-450) /uL Baso # (Auto) 0 (0-100) /uL D-Dimer (<230) ng/mL Sodium 133 L (137-145) mmol/L Potassium 3.8 (3.4-5.1) mmol/L Chloride 101 (98-107) mmol/L Carbon Dioxide 22 (22-32) mmol/L BUN 7 (7-17) mg/dL Creatinine 0.53 (0.52-1.04) mg/dL Estimated GFR > 60 (>60) mL/min BUN/Creatinine Ratio 13.2 (6-22) Glucose 136 H (70-100) mg/dL Lactate (0.7-2.1) mmol/L Calcium 9.0 (8.4-10.2) mg/dL Magnesium 1.8 (1.6-2.3) mg/dL Total Bilirubin 0.3 (0.2-1.3) mg/dL AST 26 (14-36) IU/L ALT 16 (<35) IU/L Alkaline Phosphatase 66 (38-126) U/L Total Creatine Kinase (30-135) U/L CK-MB (CK-2) CK-MB (CK-2) Rel Index Troponin I (0.01-0.034) ng/mL C-Reactive Protein (<1.0) mg/dL NT-Pro-B Natriuret Pep (<125) pg/mL Total Protein 7.5 (6.3-8.2) g/dL Albumin 4.1 (3.5-5.0) g/dL Globulin 3.4 (1.7-4.1) g/dL Albumin/Globulin Ratio 1.2 (1.0-2.8) Procalcitonin (<0.5) ng/mL Urine Color Urine Appearance Urine pH (4.5-8.0) Ur Specific [place] (1.000-1.035) Urine Protein (Negative) Urine Glucose (UA) (Negative) g/dL Urine Ketones (NEGATIVE) Urine Occult Blood (Negative) Urine Nitrate (Negative) Urine Bilirubin (NEGATIVE) Urine Urobilinogen (0.2) E.U./dL Ur Leukocyte Esterase (NEGATIVE) Urine RBC (0-5/HPF) Urine WBC (0-5/HPF) Ur Squamous Epith Cells (0-5/HPF) Urine Bacteria (None) Ur Culture Indicated? A. baumannii (PCR) (Not Detect) Chlamy pneumoniae PCR (Not Detect) Adenovirus (PCR) (Not Detect) B. pertussis DNA (PCR) (Not Detecte) B.parapertussis DNA PCR (Not Detecte) Geeta albicans (PCR) (Not Detect) C. glabrata (PCR) (Not Detect) C. krusei (PCR) (Not Detect) C. parapsilosis (PCR) (Not Detect) C. tropicalis (PCR) (Not Detect) Ur Chlamydia DNA (PCR) Coronavirus OC43 (PCR) (Not Detect) Coronavirus HKU1 (PCR) (Not Detect) Coronavirus 229E (PCR) (Not Detect) SARS-CoV-2 (PCR) Negative (Negative) Coronavirus NL63 (PCR) (Not Detect) Enterobacteriac sp PCR (Not Detect) E. cloacae complex PCR (Not Detect) Enterococcus sp PCR (Not Detect) E. coli (PCR) (Not Detect) H. influenzae (PCR) (Not Detect) Human Metapneumovir PCR (Not Detect) Influenza Type A (PCR) (Not Detect) Influenza Type B (PCR) (Not Detect) Klebsiella oxytoca PCR (Not Detect) Klebsiella pneumoniae (Not Detect) List. monocytogenes PCR (Not Detect) M. pneumoniae (PCR) (Not Detect) N. meningitidis (PCR) (Not Detect) Parainfluenza 1 (PCR) (Not Detect) Parainfluenza 2 (PCR) (Not Detect) Parainfluenza 3 (PCR) (Not Detect) Parainfluenza 4 (PCR) (Not Detect) Proteus species (PCR) (Not Detect) RSV (PCR) (Not Detect) Entero/Rhino (PCR) (Not Detect) Serratia marcescens PCR (Not Detect) Staphylococcus sp PCR (Not Detect) Staph aureus (PCR) (Not Detect) mecA-Methicil Res Gene Streptococcus sp PCR (Not Detect) Group A Strep (PCR) (Not Detect) Strep agalactiae (PCR) (Not Detect) Strep pneumoniae (PCR) (Not Detect) P. aeruginosa (PCR) (Not Detect) Esperanza/B-Vanco Res Genes KPC-Carbap Res Gene PCR (Not Detect) N gonorrhoeae DNA (PCR) 10/03/21 10/03/21 10/03/21 Range/Units 15:53 15:53 15:53 WBC (4.5-11.0) X10^3/uL RBC (4.0-5.2) X10^6/uL Hgb (12.0-16.0) g/dL Hct (36-46) % MCV (80-100) fL MCH (26-34) PG MCHC (30-36) % RDW (11.6-14.8) % Plt Count (150-400) X10^3/uL Neut % (Auto) (50-75) % Lymph % (Auto) (25-40) % [place] % (Auto) (3-14) % Eos % (Auto) (2-4) % Baso % (Auto) (0-2) % Neut # (Auto) (5141-0514) /uL Lymph # (Auto) (8505-1204) /uL [place] # (Auto) (0-900) /uL Eos # (Auto) (0-450) /uL Baso # (Auto) (0-100) /uL D-Dimer 574 H (<230) ng/mL Sodium (137-145) mmol/L Potassium (3.4-5.1) mmol/L Chloride (98-107) mmol/L Carbon Dioxide (22-32) mmol/L BUN (7-17) mg/dL Creatinine (0.52-1.04) mg/dL Estimated GFR (>60) mL/min BUN/Creatinine Ratio (6-22) Glucose (70-100) mg/dL Lactate 1.3 (0.7-2.1) mmol/L Calcium (8.4-10.2) mg/dL Magnesium (1.6-2.3) mg/dL Total Bilirubin (0.2-1.3) mg/dL AST (14-36) IU/L ALT (<35) IU/L Alkaline Phosphatase (38-126) U/L Total Creatine Kinase 32 (30-135) U/L CK-MB (CK-2) TNP CK-MB (CK-2) Rel Index TNP Troponin I < 0.012 (0.01-0.034) ng/mL C-Reactive Protein (<1.0) mg/dL NT-Pro-B Natriuret Pep (<125) pg/mL Total Protein (6.3-8.2) g/dL Albumin (3.5-5.0) g/dL Globulin (1.7-4.1) g/dL Albumin/Globulin Ratio (1.0-2.8) Procalcitonin (<0.5) ng/mL Urine Color Urine Appearance Urine pH (4.5-8.0) Ur Specific [place] (1.000-1.035) Urine Protein (Negative) Urine Glucose (UA) (Negative) g/dL Urine Ketones (NEGATIVE) Urine Occult Blood (Negative) Urine Nitrate (Negative) Urine Bilirubin (NEGATIVE) Urine Urobilinogen (0.2) E.U./dL Ur Leukocyte Esterase (NEGATIVE) Urine RBC (0-5/HPF) Urine WBC (0-5/HPF) Ur Squamous Epith Cells (0-5/HPF) Urine Bacteria (None) Ur Culture Indicated? A. baumannii (PCR) (Not Detect) Chlamy pneumoniae PCR (Not Detect) Adenovirus (PCR) (Not Detect) B. pertussis DNA (PCR) (Not Detecte) B.parapertussis DNA PCR (Not Detecte) Geeta albicans (PCR) (Not Detect) C. glabrata (PCR) (Not Detect) C. krusei (PCR) (Not Detect) C. parapsilosis (PCR) (Not Detect) C. tropicalis (PCR) (Not Detect) Ur Chlamydia DNA (PCR) Coronavirus OC43 (PCR) (Not Detect) Coronavirus HKU1 (PCR) (Not Detect) Coronavirus 229E (PCR) (Not Detect) SARS-CoV-2 (PCR) (Negative) Coronavirus NL63 (PCR) (Not Detect) Enterobacteriac sp PCR (Not Detect) E. cloacae complex PCR (Not Detect) Enterococcus sp PCR (Not Detect) E. coli (PCR) (Not Detect) H. influenzae (PCR) (Not Detect) Human Metapneumovir PCR (Not Detect) Influenza Type A (PCR) (Not Detect) Influenza Type B (PCR) (Not Detect) Klebsiella oxytoca PCR (Not Detect) Klebsiella pneumoniae (Not Detect) List. monocytogenes PCR (Not Detect) M. pneumoniae (PCR) (Not Detect) N. meningitidis (PCR) (Not Detect) Parainfluenza 1 (PCR) (Not Detect) Parainfluenza 2 (PCR) (Not Detect) Parainfluenza 3 (PCR) (Not Detect) Parainfluenza 4 (PCR) (Not Detect) Proteus species (PCR) (Not Detect) RSV (PCR) (Not Detect) Entero/Rhino (PCR) (Not Detect) Serratia marcescens PCR (Not Detect) Staphylococcus sp PCR (Not Detect) Staph aureus (PCR) (Not Detect) mecA-Methicil Res Gene Streptococcus sp PCR (Not Detect) Group A Strep (PCR) (Not Detect) Strep agalactiae (PCR) (Not Detect) Strep pneumoniae (PCR) (Not Detect) P. aeruginosa (PCR) (Not Detect) Es[place]anza/B-Vanco Res Genes KPC-Carbap Res Gene PCR (Not Detect) N gonorrhoeae DNA (PCR) 10/03/21 10/03/21 10/03/21 Range/Units 16:15 16:23 16:23 WBC (4.5-11.0) X10^3/uL RBC (4.0-5.2) X10^6/uL Hgb (12.0-16.0) g/dL Hct (36-46) % MCV (80-100) fL MCH (26-34) PG MCHC (30-36) % RDW (11.6-14.8) % Plt Count (150-400) X10^3/uL Neut % (Auto) (50-75) % Lymph % (Auto) (25-40) % [place] % (Auto) (3-14) % Eos % (Auto) (2-4) % Baso % (Auto) (0-2) % Neut # (Auto) (0607-6941) /uL Lymph # (Auto) (6438-3915) /uL [place] # (Auto) (0-900) /uL Eos # (Auto) (0-450) /uL Baso # (Auto) (0-100) /uL D-Dimer (<230) ng/mL Sodium (137-145) mmol/L Potassium (3.4-5.1) mmol/L Chloride (98-107) mmol/L Carbon Dioxide (22-32) mmol/L BUN (7-17) mg/dL Creatinine (0.52-1.04) mg/dL Estimated GFR (>60) mL/min BUN/Creatinine Ratio (6-22) Glucose (70-100) mg/dL Lactate (0.7-2.1) mmol/L Calcium (8.4-10.2) mg/dL Magnesium (1.6-2.3) mg/dL Total Bilirubin (0.2-1.3) mg/dL AST (14-36) IU/L ALT (<35) IU/L Alkaline Phosphatase (38-126) U/L Total Creatine Kinase (30-135) U/L CK-MB (CK-2) CK-MB (CK-2) Rel Index Troponin I (0.01-0.034) ng/mL C-Reactive Protein 4.9 H (<1.0) mg/dL NT-Pro-B Natriuret Pep 30 (<125) pg/mL Total Protein (6.3-8.2) g/dL Albumin (3.5-5.0) g/dL Globulin (1.7-4.1) g/dL Albumin/Globulin Ratio (1.0-2.8) Procalcitonin 0.44 (<0.5) ng/mL Urine Color Urine Appearance Urine pH (4.5-8.0) Ur Specific [place] (1.000-1.035) Urine Protein (Negative) Urine Glucose (UA) (Negative) g/dL Urine Ketones (NEGATIVE) Urine Occult Blood (Negative) Urine Nitrate (Negative) Urine Bilirubin (NEGATIVE) Urine Urobilinogen (0.2) E.U./dL Ur Leukocyte Esterase (NEGATIVE) Urine RBC (0-5/HPF) Urine WBC (0-5/HPF) Ur Squamous Epith Cells (0-5/HPF) Urine Bacteria (None) Ur Culture Indicated? A. baumannii (PCR) (Not Detect) Chlamy pneumoniae PCR Not detected (Not Detect) Adenovirus (PCR) Not detected (Not Detect) B. pertussis DNA (PCR) Not detected (Not Detecte) B.parapertussis DNA PCR Not detected (Not Detecte) Geeta albicans (PCR) (Not Detect) C. glabrata (PCR) (Not Detect) C. krusei (PCR) (Not Detect) C. parapsilosis (PCR) (Not Detect) C. tropicalis (PCR) (Not Detect) Ur Chlamydia DNA (PCR) Coronavirus OC43 (PCR) Not detected (Not Detect) Coronavirus HKU1 (PCR) Not detected (Not Detect) Coronavirus 229E (PCR) Not detected (Not Detect) SARS-CoV-2 (PCR) Not detected (Negative) Coronavirus NL63 (PCR) Not detected (Not Detect) Enterobacteriac sp PCR (Not Detect) E. cloacae complex PCR (Not Detect) Enterococcus sp PCR (Not Detect) E. coli (PCR) (Not Detect) H. influenzae (PCR) (Not Detect) Human Metapneumovir PCR Not detected (Not Detect) Influenza Type A (PCR) Not detected (Not Detect) Influenza Type B (PCR) Not detected (Not Detect) Klebsiella oxytoca PCR (Not Detect) Klebsiella pneumoniae (Not Detect) List. monocytogenes PCR (Not Detect) M. pneumoniae (PCR) Not detected (Not Detect) N. meningitidis (PCR) (Not Detect) Parainfluenza 1 (PCR) Not detected (Not Detect) Parainfluenza 2 (PCR) Not detected (Not Detect) Parainfluenza 3 (PCR) Not detected (Not Detect) Parainfluenza 4 (PCR) Not detected (Not Detect) Proteus species (PCR) (Not Detect) RSV (PCR) Not detected (Not Detect) Entero/Rhino (PCR) Not detected (Not Detect) Serratia marcescens PCR (Not Detect) Staphylococcus sp PCR (Not Detect) Staph aureus (PCR) (Not Detect) mecA-Methicil Res Gene Streptococcus sp PCR (Not Detect) Group A Strep (PCR) (Not Detect) Strep agalactiae (PCR) (Not Detect) Strep pneumoniae (PCR) (Not Detect) P. aeruginosa (PCR) (Not Detect) [place]anza/B-Vanco Res Genes KPC-Carbap Res Gene PCR (Not Detect) N gonorrhoeae DNA (PCR) 10/03/21 10/03/21 10/03/21 Range/Units 17:07 17:07 17:33 WBC (4.5-11.0) X10^3/uL RBC (4.0-5.2) X10^6/uL Hgb (12.0-16.0) g/dL Hct (36-46) % MCV (80-100) fL MCH (26-34) PG MCHC (30-36) % RDW (11.6-14.8) % Plt Count (150-400) X10^3/uL Neut % (Auto) (50-75) % Lymph % (Auto) (25-40) % [place] % (Auto) (3-14) % Eos % (Auto) (2-4) % Baso % (Auto) (0-2) % Neut # (Auto) (4213-4164) /uL Lymph # (Auto) (0417-6333) /uL [place] # (Auto) (0-900) /uL Eos # (Auto) (0-450) /uL Baso # (Auto) (0-100) /uL D-Dimer (<230) ng/mL Sodium (137-145) mmol/L Potassium (3.4-5.1) mmol/L Chloride (98-107) mmol/L Carbon Dioxide (22-32) mmol/L BUN (7-17) mg/dL Creatinine (0.52-1.04) mg/dL Estimated GFR (>60) mL/min BUN/Creatinine Ratio (6-22) Glucose (70-100) mg/dL Lactate (0.7-2.1) mmol/L Calcium (8.4-10.2) mg/dL Magnesium (1.6-2.3) mg/dL Total Bilirubin (0.2-1.3) mg/dL AST (14-36) IU/L ALT (<35) IU/L Alkaline Phosphatase (38-126) U/L Total Creatine Kinase (30-135) U/L CK-MB (CK-2) CK-MB (CK-2) Rel Index Troponin I (0.01-0.034) ng/mL C-Reactive Protein (<1.0) mg/dL NT-Pro-B Natriuret Pep (<125) pg/mL Total Protein (6.3-8.2) g/dL Albumin (3.5-5.0) g/dL Globulin (1.7-4.1) g/dL Albumin/Globulin Ratio (1.0-2.8) Procalcitonin (<0.5) ng/mL Urine Color Yellow Urine Appearance Clear Urine pH 6.5 (4.5-8.0) Ur Specific [place] <=1.005 (1.000-1.035) Urine Protein Negative (Negative) Urine Glucose (UA) Negative (Negative) g/dL Urine Ketones Negative (NEGATIVE) Urine Occult Blood Trace-intact (Negative) Urine Nitrate Positive H (Negative) Urine Bilirubin Negative (NEGATIVE) Urine Urobilinogen 0.2 (0.2) E.U./dL Ur Leukocyte Esterase Trace H (NEGATIVE) Urine RBC None seen (0-5/HPF) Urine WBC 1-5/hpf (0-5/HPF) Ur Squamous Epith Cells 1-5 /hpf (0-5/HPF) Urine Bacteria Many (>30) H (None) Ur Culture Indicated? Cult not indicated A. baumannii (PCR) Not detected (Not Detect) Chlamy pneumoniae PCR (Not Detect) Adenovirus (PCR) (Not Detect) B. pertussis DNA (PCR) (Not Detecte) B.parapertussis DNA PCR (Not Detecte) Geeta albicans (PCR) Not detected (Not Detect) C. glabrata (PCR) Not detected (Not Detect) C. krusei (PCR) Not detected (Not Detect) C. parapsilosis (PCR) Not detected (Not Detect) C. tropicalis (PCR) Not detected (Not Detect) Ur Chlamydia DNA (PCR) Not detected Coronavirus OC43 (PCR) (Not Detect) Coronavirus HKU1 (PCR) (Not Detect) Coronavirus 229E (PCR) (Not Detect) SARS-CoV-2 (PCR) (Negative) Coronavirus NL63 (PCR) (Not Detect) Enterobacteriac sp PCR Detected H (Not Detect) E. cloacae complex PCR Not detected (Not Detect) Enterococcus sp PCR Not detected (Not Detect) E. coli (PCR) Detected H (Not Detect) H. influenzae (PCR) Not detected (Not Detect) Human Metapneumovir PCR (Not Detect) Influenza Type A (PCR) (Not Detect) Influenza Type B (PCR) (Not Detect) Klebsiella oxytoca PCR Not detected (Not Detect) Klebsiella pneumoniae Not detected (Not Detect) List. monocytogenes PCR Not detected (Not Detect) M. pneumoniae (PCR) (Not Detect) N. meningitidis (PCR) Not detected (Not Detect) Parainfluenza 1 (PCR) (Not Detect) Parainfluenza 2 (PCR) (Not Detect) Parainfluenza 3 (PCR) (Not Detect) Parainfluenza 4 (PCR) (Not Detect) Proteus species (PCR) Not detected (Not Detect) RSV (PCR) (Not Detect) Entero/Rhino (PCR) (Not Detect) Serratia marcescens PCR Not detected (Not Detect) Staphylococcus sp PCR Not detected (Not Detect) Staph aureus (PCR) Not detected (Not Detect) mecA-Methicil Res Gene Not Reportable Streptococcus sp PCR Not detected (Not Detect) Group A Strep (PCR) Not detected (Not Detect) Strep agalactiae (PCR) Not detected (Not Detect) Strep pneumoniae (PCR) Not detected (Not Detect) P. aeruginosa (PCR) Not detected (Not Detect) Esperanza/B-Vanco Res Genes Not Reportable KPC-Carbap Res Gene PCR Not detected (Not Detect) N gonorrhoeae DNA (PCR) Not detected Discharge Plan Departure Patient Disposition: Admitted As Inpatient Clinical Impression: Pyelonephritis affecting Qualifiers: Trimester: third trimester Qualified Code(s): O23.03 - Infections of kidney in , third trimester Admit Date/Time: 10/03/21 18:09 Admit Provider: Ermelinda Restrepo <Chacha Downs DO - Last Filed: 10/05/21 18:56> Cosign ED Attending Cosignature Attestation: I was immediately available in the department for consultation. Documentation has been reviewed. Patient case reviewed with myself. Patient was seen by OBGYN and admitted for pyelonephritis in . Agree with current plan and care.
[2021-10-03 16:39] LABS: C-Reactive Protein Quant 4.9 mg/dL (<1.0)
[2021-10-03 16:54] LABS: Procalcitonin 0.44 ng/mL (<0.5)
[2021-10-03 16:55] LABS: D Dimer 574 ng/mL (<230)
[2021-10-03 17:13] LABS: NT-proBNP (BNP-Adult 18+) 30 pg/mL (<125)
[2021-10-03 17:20] LABS: Lactate (Lactic Acid) 1.3 mmol/L (0.7-2.1)
[2021-10-03 17:38] LABS: Appearance Urine UA CLEAR; Bilirubin Urine UA NEGATIVE (NEGATIVE); Color Urine UA YELLOW; Glucose Urine UA NEGATIVE (Negative); Ketones Urine UA NEGATIVE (NEGATIVE); Leukocyte Esterase Urine UA TRACE (NEGATIVE); Nitrite Urine UA POSITIVE (Negative); Occult Blood Urine UA TRACE-INTACT (Negative); Protein Urine UA NEGATIVE (Negative); Specific Gravity Urine UA <=1.005 (1.000-1.035); Urobilinogen Urine UA 0.2 E.U./dL (0.2)
--- NOTE | 2021-10-03 17:39 | PM.OBHP.IH.1 ---
OB HPI Date/Time Date of admission: 10/03/21 Date Patient Seen: 10/03/21 Time Patient Seen: 17:10 History of Present Condition Chief complaint: Low Blood Sugar, Tachy CHANCE Calculator Estimated Delivery Date Method Current WG Current Estimate 12/31/21 Ultrasound #2 27w 2d Other Estimates 12/29/21 LMP (Uncertain) 27w 4d 01/01/22 Ultrasound #1 27w 1d Estimated Gestational Age (weeks): 27 : 1 Para: 0 Narrative: This patient is a 31yo @27+2 by 1st tri US, presenting to the emergency room for chills, malaise, and right flank pain. The patient reports that she has had upper right back/flank pain for a week or more, though no dysuria, hematuria, or urinary frequency. She has had intermittent epigastric pain that has now resolved, denies diarrhea or constipation, and reports mild nausea without vomiting, She reports occasional cramping though no bleeding or loss of fluid, and feels good movement. She has had an uncomplicated up to this point, and denies any significant medical or surgical history including history of UTIs. care: good care Dating criteria OB: LMP confirmed by 1st trimester US Ultrasounds: normal mid trimester US Obstetrical complications: none Medical complications OB: none Preadmission Labs Last OB Lab Results: Blood Type A Positive 05/07/21 12:30 05/07/21 Antibody Screen Negative 10/01/21 17:16 10/01/21 Hematocrit 34.2 % (36-46) L 10/03/21 15:53 10/03/21 Hemoglobin 11.7 g/dL (12.0-16.0) L 10/03/21 15:53 10/03/21 Glucose 1 Hour 155 mg/dL (76-139) H 10/01/21 17:16 10/01/21 Genetic Screens: Quad screen: Normal Evaluation Evaluation Comments: Bedside ultrasound WNL, NST pending staffing availability given multiple ongoing L&D emergencies [facility] Medical History (Updated 10/03/21 @ 17:50 by KIRK Miramontes) No significant past medical history Surgical History (Updated 08/08/21 @ 13:36 by Cynthia Garibay, RN) No history of previous surgery Family History (Updated 08/08/21 @ 13:38 by Cynthia Garibay RN) Father Heart attack Grandmother Breast cancer Grandfather Diabetes mellitus Cancer Social History marital status: unmarried,living together number of children: 0 household members: significant other lives independently: Yes housing: apartment pets and animals: No 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) vanessa/alevism: [employer] [place] seatbelt use: always water heater temp set < 120 deg: Yes working smoke detector in home: Yes fire extinguisher in home: Yes carbon monox detector in home: Yes firearms in home: No do you feel safe at home: Yes Smoking Status: Never smoker second hand exposure: No alcohol intake: former substance use type: does not use during the past year weight has: remained stable well-balanced diet: daily or most days daily servings fruits/ve-4 caffeine: Yes (200mg daily) Type(s) of exercise: additional (stretching) Meds Home Medications and Allergies Home Medications Medication Instructions Recorded Confirmed Type prenat.vits,jason,[id number] 1 tab PO DAILY 08/07/21 09/17/21 History triamcinolone acetonide 0.1 % 1 applic TOPICAL DAILY 08/08/21 09/17/21 History topical cream Allergies Allergy/AdvReac Type Severity Reaction Status Date / Time No Known Drug Allergies Allergy Verified 09/17/21 11:43 Review of Systems Constitutional Constitutional: Reports as per HPI Cardiovascular Cardiovascular: Reports system reviewed and no additional complaints, except as documented Respiratory Respiratory: Reports system reviewed and no additional complaints, except as documented Gastrointestinal Gastrointestinal: Reports system reviewed and no additional complaints, except as documented Genitourinary Genitourinary: Reports as per HPI OB Exam Narrative Exam Narrative: Patent resting in bed, accompanied by spouse. Somewhat pale appearing. GI Palpation: Yes soft and No tender Other: No epigastric or suprapubic tenderness. Significant right CVA tenderness. Objective Labs Result Diagrams: 10/03/21 15:53 10/03/21 15:53 Labs: Laboratory Results - last 24 hr 10/03/21 10/03/21 10/03/21 15:12 15:53 15:53 WBC 16.4 H RBC 3.88 L Hgb 11.7 L Hct 34.2 L MCV 88.2 MCH 30.1 MCHC 34.1 RDW 13.6 Plt Count 217 Neut % (Auto) 92.6 H Lymph % (Auto) 4.3 L [place] % (Auto) 2.8 L Eos % (Auto) 0.1 L Baso % (Auto) 0.2 Neut # (Auto) 56969 H Lymph # (Auto) 700 L [place] # (Auto) 500 Eos # (Auto) 0 Baso # (Auto) 0 D-Dimer Sodium 133 L Potassium 3.8 Chloride 101 Carbon Dioxide 22 BUN 7 Creatinine 0.53 Estimated GFR > 60 BUN/Creatinine Ratio 13.2 Glucose 136 H Lactate Calcium 9.0 Magnesium 1.8 Total Bilirubin 0.3 AST 26 ALT 16 Alkaline Phosphatase 66 Total Creatine Kinase CK-MB (CK-2) CK-MB (CK-2) Rel Index Troponin I C-Reactive Protein NT-Pro-B Natriuret Pep Total Protein 7.5 Albumin 4.1 Globulin 3.4 Albumin/Globulin Ratio 1.2 Procalcitonin SARS-CoV-2 (PCR) Negative 10/03/21 10/03/21 10/03/21 15:53 15:53 15:53 WBC RBC Hgb Hct MCV MCH MCHC RDW Plt Count Neut % (Auto) Lymph % (Auto) [place] % (Auto) Eos % (Auto) Baso % (Auto) Neut # (Auto) Lymph # (Auto) [place] # (Auto) Eos # (Auto) Baso # (Auto) D-Dimer 574 H Sodium Potassium Chloride Carbon Dioxide BUN Creatinine Estimated GFR BUN/Creatinine Ratio Glucose Lactate 1.3 Calcium Magnesium Total Bilirubin AST ALT Alkaline Phosphatase Total Creatine Kinase 32 CK-MB (CK-2) TNP CK-MB (CK-2) Rel Index TNP Troponin I < 0.012 C-Reactive Protein NT-Pro-B Natriuret Pep Total Protein Albumin Globulin Albumin/Globulin Ratio Procalcitonin SARS-CoV-2 (PCR) 10/03/21 10/03/21 16:23 16:23 WBC RBC Hgb Hct MCV MCH MCHC RDW Plt Count Neut % (Auto) Lymph % (Auto) [place]erry % (Auto) Eos % (Auto) Baso % (Auto) Neut # (Auto) Lymph # (Auto) [place]erry # (Auto) Eos # (Auto) Baso # (Auto) D-Dimer Sodium Potassium Chloride Carbon Dioxide BUN Creatinine Estimated GFR BUN/Creatinine Ratio Glucose Lactate Calcium Magnesium Total Bilirubin AST ALT Alkaline Phosphatase Total Creatine Kinase CK-MB (CK-2) CK-MB (CK-2) Rel Index Troponin I C-Reactive Protein 4.9 H NT-Pro-B Natriuret Pep 30 Total Protein Albumin Globulin Albumin/Globulin Ratio Procalcitonin 0.44 SARS-CoV-2 (PCR) Assessment and Plan Assessment and Plan Assessment and Plan narrative: This patient presents with suspected pyelonephritis. She is afebrile, but has a UA significant for infection, an elevated WBC count, and is mildly tachycardic with slightly decreased BPs. The patient is not currently septic but appears more clinically ill in person than indicated by her current labs and vitals, warranting close monitoring. She has no known allergies and will be admitted for IV ceftriaxone, repeat labs, IV hydration, and close monitoring of maternal VS and status. - Finish 2nd 1L bolus LR, then continue IVF 125ccs/hr - Ceftriaxone 1g q24 hrs starting now - NSTs qshift - VS q4 hrs
[2021-10-03 17:43] LABS: pH Urine UA 6.5 (4.5-8.0)
[2021-10-03 17:44] LABS: Bacteria Urine Many (>30); Culture Indicated Urine Cult Not Indicated; RBC Urine None Seen (0-5/HPF); Squamous Epithelial Cell Urine 1-5 /HPF (0-5/HPF); WBC Urine 1-5/HPF (0-5/HPF)
[2021-10-03] MEDS: cefTRIAXone 1,000 MG in SODIUM CHLORIDE 0.9% 100 ML 200 MG IV (18:14)
[2021-10-03 18:34] LABS: Adenovirus Not Detected (Not Detect); B. parapertussis Not Detected (Not Detecte); Bordetella pertussis Not Detected (Not Detecte); Chlamydophila pneumoniae Not Detected (Not Detect); Coronavirus 229E Not Detected (Not Detect); Coronavirus HKU1 Not Detected (Not Detect); Coronavirus NL 63 Not Detected (Not Detect); Coronavirus OC43 Not Detected (Not Detect); Human Metapneumovirus Not Detected (Not Detect); Human Rhinovirus/Enterovirus Not Detected (Not Detect); Influenza A Not Detected (Not Detect); Influenza B Not Detected (Not Detect); Mycoplasma pneumoniae Not Detected (Not Detect); Parainfluenza Virus 1 Not Detected (Not Detect); Parainfluenza Virus 2 Not Detected (Not Detect); Parainfluenza Virus 3 Not Detected (Not Detect); Parainfluenza Virus 4 Not Detected (Not Detect); Respiratory Syncytial Virus Not Detected (Not Detect); SARS- CoV-2 Not Detected (Not Detecte)
[2021-10-03 18:48] LABS: Urine N gonorrhoeae NOT DETECTED
[2021-10-03 19:16] LABS: Urine Chlamydia NOT DETECTED
[2021-10-03] MEDS: LACTATED RINGERS 1,000 ML 125 ML IV (20:24)
[2021-10-04 00:45] VITALS: BP 103/46; PULSE 100; RESP 22; TEMP 37.2; O2SAT 97
[2021-10-04] MEDS: LACTATED RINGERS 1,000 ML 125 ML IV ×2 (05:59→14:11)
[2021-10-04 06:05] VITALS: BP 113/54; PULSE 80; RESP 18; TEMP 36.8; O2SAT 100
[2021-10-04 07:07] LABS: BUN Creatinine Ratio 8.9 (6-22); Blood Urea Nitrogen 4 mg/dL (7-17); Calcium 8.4 mg/dL (8.4-10.2); Carbon Dioxide 24 mmol/L (22-32); Chloride 109 mmol/L (98-107); Estimated Glomerular Filt Rate > 60 mL/min (>60); Glucose 108 mg/dL (70-100); HEMOLYSIS < 15 (0-50); Magnesium 1.8 mg/dL (1.6-2.3); Potassium 3.4 mmol/L (3.4-5.1); Sodium 137 mmol/L (137-145)
[2021-10-04 07:09] LABS: Add Manual Diff / Slide Review NO; Basophils Absolute Auto 0 /uL (0-100); Basophils Percent Auto 0.2 % (0-2); Eosinophils Absolute Auto 0 /uL (0-450); Eosinophils Percent Auto 0.3 % (2-4); Hematocrit 30.6 % (36-46); Hemoglobin 10.4 g/dL (12.0-16.0); Lymphocytes Absolute Auto 1000 /uL (1100-4500); Lymphocytes Percent Auto 8.6 % (25-40); Mean Corpuscular HGB Conc 34.1 % (30-36); Mean Corpuscular Hemoglobin 30.3 PG (26-34); Mean Corpuscular Volume 88.8 fL (80-100); Monocytes Absolute Auto 900 /uL (0-900); Monocytes Percent Auto 7.5 % (3-14); Neutrophils Absolute Auto 9900 /uL (1500-7000); Neutrophils Percent Auto 83.4 % (50-75); Platelet Count 195 X10^3/uL (150-400); Red Blood Cell Count 3.44 X10^6/uL (4.0-5.2); Red Cell Distribution Width 13.4 % (11.6-14.8); White Blood Cell Count 11.9 X10^3/uL (4.5-11.0)
--- NOTE | 2021-10-04 09:15 | CM.DANOTE ---
DCP Brief Assessment note Patient is a 31 yo female who was admitted on 10/03/21 for Low blood sugar and Tachy. Pt has [employer] for insurance and her PCP is on the [facility]. EMR was reviewed. Per OBGYN, pt currently with strong heart tones for baby but pt being treated for UTI with IV-Abx and close to being septic. Pt is active and independent with ADLs and drives and is employed by the [employer]. No bedside assessment completed at this time due to triage needs and currently no barriers to discharge identified. Plan: SW to follow closely for pt progress and confirm safe plan of home and to follow for any further identified discharge planning needs or concerns. JOSEPH Malin
[2021-10-04] MEDS: PRENATAL VIT,CALC/IRON/FOLIC 1 TABLET 1 TAB PO (09:18)
[2021-10-04] MEDS: ACETAMINOPHEN 325 MG TABLET 975 MG PO (09:18)
[2021-10-04 09:39] VITALS: BP 114/51; PULSE 92; RESP 18; TEMP 37.2; O2SAT 100
[2021-10-04 09:42] LABS: Acinetobacter baumannii Not Detected (Not Detect); Candida albicans Not Detected (Not Detect); Candida glabrata Not Detected (Not Detect); Candida krusei Not Detected (Not Detect); Candida parapsilosis Not Detected (Not Detect); Candida tropicalis Not Detected (Not Detect); E. coli Detected (Not Detect); Enterobacter cloacae complex Not Detected (Not Detect); Enterobacteriaceae species Detected (Not Detect); Enterococcus species Not Detected (Not Detect); Haemophilus influenzae Not Detected (Not Detect); KPC (carbapenem-resist gene) Not Detected (Not Detect); Listeria monocytogenes Not Detected (Not Detect); Neisseria meningitidis Not Detected (Not Detect); Proteus species Not Detected (Not Detect); Pseudomonas aeruginosa Not Detected (Not Detect); Serratia marcescens Not Detected (Not Detect); Staphylococcus species Not Detected (Not Detect); Streptococcus agalactiae (Gr B Not Detected (Not Detect); Streptococcus pneumonia Not Detected (Not Detect); Streptococcus pyogenes (Gr A) Not Detected (Not Detect); Streptococcus species Not Detected (Not Detect)
[2021-10-04] MEDS: cefTRIAXone 1,000 MG in SODIUM CHLORIDE 0.9% 100 ML 200 MG IV (17:28)
--- NOTE | 2021-10-04 17:54 | PM.DS.1 ---
History of Present Illness History of Present Illness Date Patient Seen: 10/04/21 Time Patient Seen: 17:54 Chief complaint: Pyelonephritis in 2nd trimester Discharge Providers Provider Date of admission: 10/03/21 18:09 Discharge Date: 10/04/21 Primary care physician: Ivette Wasserman MD Consults: 10/03/21 16:37 Consult to Obstetrics Stat Comment: Consulting Provider: Ermelinda Restrepo Reason for consultation: possible admit Has provider been notified: Yes Discharge provider: Bhargavi Enrique MD Summary Hospital Course Discharge Diagnosis: 27 week gestation with pyelonephritis Hospital Course: Patient was admitted through the emergency room for pyelonephritis in . She is receiving her 2nd dose of IV antibiotics and has remained afebrile throughout hospitalization. She is feeling much better. Status at Discharge Cognitive/behavioral status at discharge: oriented Functional status at discharge: independent ambulation Overall status at discharge: patient is progressing back to baseline Time Spent with Patient Time spent: Less than 30 minutes Exam Vital Signs (past 8 hours): Oxygen Delivery Method Room Air Oxygen Flow Rate 0 Narrative Exam Narrative: Patient has been afebrile throughout the hospitalization with normal vital signs. Patient has minimal CVA tenderness. Her abdomen is soft, nontender. Uterus is nontender. heart tones 140s. Extremities without edema and nontender. Objective Labs Result Diagrams: 10/04/21 06:38 10/04/21 06:38 Labs: Laboratory Results - last 24 hr 10/03/21 10/03/21 10/03/21 16:15 17:07 17:33 WBC RBC Hgb Hct MCV MCH MCHC RDW Plt Count Neut % (Auto) Lymph % (Auto) [place] % (Auto) Eos % (Auto) Baso % (Auto) Neut # (Auto) Lymph # (Auto) [place] # (Auto) Eos # (Auto) Baso # (Auto) Sodium Potassium Chloride Carbon Dioxide BUN Creatinine Estimated GFR BUN/Creatinine Ratio Glucose Calcium Magnesium A. baumannii (PCR) Not detected Chlamy pneumoniae PCR Not detected Adenovirus (PCR) Not detected B. pertussis DNA (PCR) Not detected B.parapertussis DNA PCR Not detected Geeta albicans (PCR) Not detected C. glabrata (PCR) Not detected C. krusei (PCR) Not detected C. parapsilosis (PCR) Not detected C. tropicalis (PCR) Not detected Ur Chlamydia DNA (PCR) Not detected Coronavirus OC43 (PCR) Not detected Coronavirus HKU1 (PCR) Not detected Coronavirus 229E (PCR) Not detected SARS-CoV-2 (PCR) Not detected Coronavirus NL63 (PCR) Not detected Enterobacteriac sp PCR Detected H E. cloacae complex PCR Not detected Enterococcus sp PCR Not detected E. coli (PCR) Detected H H. influenzae (PCR) Not detected Human Metapneumovir PCR Not detected Influenza Type A (PCR) Not detected Influenza Type B (PCR) Not detected Klebsiella oxytoca PCR Not detected Klebsiella pneumoniae Not detected List. monocytogenes PCR Not detected M. pneumoniae (PCR) Not detected N. meningitidis (PCR) Not detected Parainfluenza 1 (PCR) Not detected Parainfluenza 2 (PCR) Not detected Parainfluenza 3 (PCR) Not detected Parainfluenza 4 (PCR) Not detected Proteus species (PCR) Not detected RSV (PCR) Not detected Entero/Rhino (PCR) Not detected Serratia marcescens PCR Not detected Staphylococcus sp PCR Not detected Staph aureus (PCR) Not detected mecA-Methicil Res Gene Not Reportable Streptococcus sp PCR Not detected Group A Strep (PCR) Not detected Strep agalactiae (PCR) Not detected Strep pneumoniae (PCR) Not detected P. aeruginosa (PCR) Not detected Esperanza/B-Vanco Res Genes Not Reportable KPC-Carbap Res Gene PCR Not detected N gonorrhoeae DNA (PCR) Not detected 10/04/21 10/04/21 06:38 06:38 WBC 11.9 H RBC 3.44 L Hgb 10.4 L Hct 30.6 L MCV 88.8 MCH 30.3 MCHC 34.1 RDW 13.4 Plt Count 195 Neut % (Auto) 83.4 H Lymph % (Auto) 8.6 L [place] % (Auto) 7.5 Eos % (Auto) 0.3 L Baso % (Auto) 0.2 Neut # (Auto) 9900 H Lymph # (Auto) 1000 L [place] # (Auto) 900 Eos # (Auto) 0 Baso # (Auto) 0 Sodium 137 Potassium 3.4 Chloride 109 H Carbon Dioxide 24 BUN 4 L Creatinine 0.45 L Estimated GFR > 60 BUN/Creatinine Ratio 8.9 Glucose 108 H Calcium 8.4 Magnesium 1.8 A. baumannii (PCR) Chlamy pneumoniae PCR Adenovirus (PCR) B. pertussis DNA (PCR) B.parapertussis DNA PCR Egeta albicans (PCR) C. glabrata (PCR) C. krusei (PCR) C. parapsilosis (PCR) C. tropicalis (PCR) Ur Chlamydia DNA (PCR) Coronavirus OC43 (PCR) Coronavirus HKU1 (PCR) Coronavirus 229E (PCR) SARS-CoV-2 (PCR) Coronavirus NL63 (PCR) Enterobacteriac sp PCR E. cloacae complex PCR Enterococcus sp PCR E. coli (PCR) H. influenzae (PCR) Human Metapneumovir PCR Influenza Type A (PCR) Influenza Type B (PCR) Klebsiella oxytoca PCR Klebsiella pneumoniae List. monocytogenes PCR M. pneumoniae (PCR) N. meningitidis (PCR) Parainfluenza 1 (PCR) Parainfluenza 2 (PCR) Parainfluenza 3 (PCR) Parainfluenza 4 (PCR) Proteus species (PCR) RSV (PCR) Entero/Rhino (PCR) Serratia marcescens PCR Staphylococcus sp PCR Staph aureus (PCR) mecA-Methicil Res Gene Streptococcus sp PCR Group A Strep (PCR) Strep agalactiae (PCR) Strep pneumoniae (PCR) P. aeruginosa (PCR) Esperanza/B-Vanco Res Genes KPC-Carbap Res Gene PCR N gonorrhoeae DNA (PCR) [facility] Medical History (Updated 10/03/21 @ 17:50 by Rebekah Carbajal BICYCLE COURIER) No significant past medical history Surgical History (Updated 08/08/21 @ 13:36 by Cynthia Garibay RN) No history of previous surgery Family History (Updated 08/08/21 @ 13:38 by Cynthia Garibay RN) Father Heart attack Grandmother Breast cancer Grandfather Diabetes mellitus Cancer Social History marital status: unmarried,living together number of children: 0 household members: significant other lives independently: Yes housing: apartment pets and animals: No 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) vanessa/sabianist: [employer] [place] seatbelt use: always water heater temp set < 120 deg: Yes working smoke detector in home: Yes fire extinguisher in home: Yes carbon monox detector in home: Yes firearms in home: No do you feel safe at home: Yes Smoking Status: Never smoker second hand exposure: No alcohol intake: former substance use type: does not use during the past year weight has: remained stable well-balanced diet: daily or most days daily servings fruits/ve-4 caffeine: Yes (200mg daily) Type(s) of exercise: additional (stretching) Discharge Assessment & Plan Assessment and Plan Assessment: 27 week with diagnosis pyelonephritis. Patient is receiving her 2nd dose of ceftriaxone. She is doing well and remained afebrile. Plan of Treatment: Patient will be discharged home to be continued on oral antibiotics. The sensitivities will be checked as soon is available and antibiotics changed if not sensitive. Patient will keep her normal OB appointment on October 15. Discharge Plan Discharge Plan Patient Disposition: Home Discharge orders & Medications Prescriptions: Continued prenat.vits,jason,[id number] Tablet 1 tab PO DAILY 0RF triamcinolone acetonide 0.1 % cream 1 applic topical DAILY 0RF No Action ampicillin 500 mg capsule 500 mg PO QID Qty: 28 0RF Follow up/Referrals: Ivette Wasserman MD [Primary Care Provider] - Madison Colon MD [Physician] - As previously scheduled (October 15) Diet/Activity/Treatments Diet: Regular Skin/Wound/Dressing Care Report to your healthcare provider any signs of infection, such as:: chills, fever and increased pain Visit Report/Discharge Packet Instructions: DI for Urinary Tract Infection (UTI) Discharge Data Primary Care Provider: Ivette Wasserman Quality VTE Deep Vein Thrombosis/Pulmonary Embolism Present on Admission: No
== END 2021-10-04 19:00 | disposition home or self-care (01) | DRG 832 ==
LOC: ED 17:50 → AC 18:11
PROVIDERS: Emergency Medicine; Admitting Provider Obstetrics & Gynecology; Emergency Provider Nurse Practitioner Critical Care Medicine; PCP Student in an Organized Health Care Education/Training Program; Referring Provider Nurse Practitioner Critical Care Medicine; Visit Provider Obstetrics & Gynecology
DX: O23.02 Infections of kidney in pregnancy, second trimester (principal); N12 Tubulo-interstitial nephritis, not specified as acute or chronic; O99.412 Diseases of the circulatory system complicating pregnancy, second trimester; R00.0 Tachycardia, unspecified; B96.20 Unspecified Escherichia coli [E. coli] as the cause of diseases classified elsewhere; Z3A.27 27 weeks gestation of pregnancy; Z20.822 Contact with and (suspected) exposure to COVID-19
CPT/HCPCS: 36415; 36592; 76815; 80048; 80053; 81001; 82550; 83605; 83735; 83880; 84145; 84484; 85025; 85379; 86140; 87040; 87077; 87086; 87150; 87186; 87491; 87591; 87633; 87635; 93005; 96361; 96365; 99284; C9803; J0696

== ENCOUNTER → 2021-10-11 07:02 | Outpatient (CLI) | payer OTHER, SELFPAY ==
[2021-10-03 18:11] VITALS: BMI 24.7
[2021-10-11 09:14] LABS: Glucose Fasting Gestational 77 mg/dL (76-95)
[2021-10-11 09:14] LABS: Glucose 1 Hour Gest 170 mg/dL (76-180)
[2021-10-11 10:32] LABS: Glucose Tol Interp,Gestational INTERPRETATION
[2021-10-11 11:11] LABS: Glucose 2 Hour Gest 175 mg/dL (76-155)
[2021-10-11 11:12] LABS: Glucose 3 Hour Gest 158 mg/dL (76-140)
== END ==
PROVIDERS: PCP Student in an Organized Health Care Education/Training Program; Referring Provider Obstetrics & Gynecology; Visit Provider Obstetrics & Gynecology
DX: R73.09 Other abnormal glucose (principal)
CPT/HCPCS: 36415; 82951; 82952

== ENCOUNTER → 2021-10-18 15:41 | Outpatient (CLI) | payer OTHER, SELFPAY ==
[2021-10-03 18:11] VITALS: BMI 24.7
--- NOTE | 2021-10-23 17:00 | DIAB.GDA ---
Initial Gestational Diabetes Assessment Name: Juma Snowden (Angelica) Date: 10/18/21 Time: 12-1p Dx: Gestational Diabetes Provider: Isaiah CHANCE: 12/31/21 Weeks: 29 Juma presents for initial visit via [employer] platform. Due to her work schedule, she was unable to meet in person this week. +FH of DM with paternal grandparents. Reports trying to avoid as much carb as possible. When having carbs she does notice some elevations, though this may be when carb intake is >60g (ie pork bun snack). Reports some sugar beverages and long periods of fasting resulting in excessive hunger (worried about eating due to blood sugar concerns). Today her main concern is how GDM can impact baby. Anthropometrics: Ht: 63 Wt: 145# last wt (no new wt today) Prepregnancy wt: 114# Physical Activity: Walking for ADLs. No program. Self-Monitoring Blood Glucose: Reviewed BG. FBG in goal. Some pc readings <100. A few elevations from high carb intake reported. Highest reading of 200 from banana fritters x 3. Diabetes Medications: None Pertinent Labs: screen 155 H ; OGTT 77, 170, 175 H, 158 H Intervention: This participant was very receptive. Provided appropriate educational handouts. Discussed the following topics: GDM pathophysiology and impact of hyperglycemia on mom and baby Risk for T2DM for mom and baby in the future Ways to reduce risk T2DM Plate Method, meal timing, carb counting, pairing macronutrients and spreading out CHO for better BG management Blood glucose goals (FBG: <95 and 2 hour <120 mg/dL); importance of checking 4x per day (FBG and pc) Impact of macronutrients on blood glucose Recommended servings for carbohydrates at meals and snacks Brainstormed appropriate meal/snack ideas on her food preferences Role of physical activity and following provider guidelines for safety Goals: Follow carb recs during Start walks tomorrow Avoid sugar beverages Add evening snack Follow-up: TARA MORELAND follow-up in one week via phone and 2 weeks in-person Lawanda Sheppard RDN, ANICETO Certified Diabetes Care and Veneer Supervisor T: [phone] F: [phone] [email or web address] Thank you for this referral
== END ==
PROVIDERS: PCP Student in an Organized Health Care Education/Training Program; Referring Provider Obstetrics & Gynecology; Visit Provider Obstetrics & Gynecology
DX: O24.419 Gestational diabetes mellitus in pregnancy, unspecified control (principal); Z3A.29 29 weeks gestation of pregnancy
CPT/HCPCS: G0108

== ENCOUNTER → 2021-11-01 14:40 | Outpatient (CLI) | payer OTHER, SELFPAY ==
[2021-10-03 18:11] VITALS: BMI 24.7
--- NOTE | 2021-11-05 09:40 | DIAB.GDFU ---
Addendum entered by Lawanda Sheppard 11/05/21 11:20: Also discussed concerns she had about T1 and ADHD from GDM. Reviewed impact on baby: hypoglycemia, macrosomia, risk of T2 and obesity later. No known connection to T1 or ADHD. Original Note: Follow-up Gestational Diabetes Assessment Name: Juma Snowden (Angelica) Date: 11/01/21 Time: 245-330p Dx: Gestational Diabetes Provider: Isaiah CHANCE: 12/31/21 Weeks: 31 Angelica presents today with , Gilbert, for forllow-up. Reports some meals high in carbohydrates, resulting in hyperglycemia. This is mostly due to comfort foods, ie Salvadorean soup with extra rice. Vegetable intake also on the low side, which could contribute to higher carb intake for satiety. Sees OB today. Anthropometrics: Ht: 63 Wt: No new wt today, will get new wt at OB today Prepregnancy wt: 114# Physical Activity: Started walking daily Self-Monitoring Blood Glucose: All FBG in goal. Missed BG measurements from stress with recent work and exam for work. Plans to resume testing on schedule. Hyperglycemia after meals from large rice portions or rice with bread. Date Pre Post Pre Post Pre Post HS 10/24 70 10/27 159 120 10/28 67 72 10/29 68 79 10/30 155 10/31 72 73 11/01 77 75 Diabetes Medications: None Pertinent Labs: screen 155 H ; OGTT 77, 170, 175 H, 158 H Nutrition Rx: Carbohydrates: Meal: 45-g lunch and dinner; 30g breakfast Snack: 15-30g Nutrition Diagnosis: Altered nutrition related lab value r/t GDM dx aeb recent OGTT Excessive carbohydrate intake r/t inadequate veggies and craving comfort foods aeb diet recall, pt report, and SMBG Intervention: This participant was very receptive. Provided appropriate educational handouts. Discussed the following topics: Recent blood sugar results and impact of food and hormones Review of macronutrient recommendations during Plate Method and Carb counting Physical activity plan and progress Goals: Follow carb recs during - in progress Start walks tomorrow- met Avoid sugar beverages- in progress Add evening snack- not met Keep rice to 1c (no more than 1.5c in a sitting)- new Keep walking daily safely- new Try to add vegetables to lunch and dinner regularly- new Follow-up: RDN CDCES follow-up in 2-3 weeks Lawanda Sheppard RDN, ANICETO Certified Diabetes Care and Meat Stocker T: [phone] F: [phone] [email or web address] Thank you for this referral
== END ==
PROVIDERS: PCP Student in an Organized Health Care Education/Training Program; Referring Provider Obstetrics & Gynecology; Visit Provider Obstetrics & Gynecology
DX: O24.419 Gestational diabetes mellitus in pregnancy, unspecified control (principal); Z3A.31 31 weeks gestation of pregnancy
CPT/HCPCS: 97803

== ENCOUNTER → 2021-11-20 16:02 | Outpatient (CLI) | payer OTHER, SELFPAY ==
[2021-10-03 18:11] VITALS: BMI 24.7
--- NOTE | 2021-11-20 17:17 | DIAB.GDFU ---
Follow-up Gestational Diabetes Assessment Name: Juma Snowden (Angelica) Date: 11/20/21 Time: 430-5p Dx: Gestational Diabetes Provider: Isaiah CHANCE: 12/31/21 Weeks: 34 Angelica presents for follow-up visit. She is tearful today. States she feels disheartened by the care she gets at the clinic. Also feels guilty about her unplanned outside of marriage. Feels that god is punishing her with GDM. We discussed GDM risk at length today. Reports potential for depression recently. States she is also experiencing some abdominal discomfort and tightness. Overall blood sugars are within goal. Keeping rice to 1c most meals. Increased veggie intake. Drinking 4oz cran juice with 4oz water as morning snack to reduce risk of UTI. Worries about kidney infection since admission for UTI. Physical Activity: Walking 60 min per day Self-Monitoring Blood Glucose: Most of recent BG in goal. Last month some readings after meal of 133 and 157 with high carb intake, but this has improved. One low last month of 59 recorded after long period of fasting and very light breakfast. No lows since. Date Pre Post Pre Post Pre Post HS 11/14 78 107 112 113 /8 76 83 119 108 11/16 86 122 101 95 11/17 89 105 118 105 /11 70 86 106 86 11/19 89 120 92 120 11/20 76 101 89 Diabetes Medications: None Pertinent Labs: screen 155 H ; OGTT 77, 170, 175 H, 158 H Intervention: This participant was very receptive. Provided appropriate educational handouts. Discussed the following topics: GDM risk. Populations at-risk: FH of DM and racial minorities. Risk she would have for GDM regardless of marriage status. Limited evidence for cranberry juice and UTI prevention. General causes and prevention for UTI Encouraged discussing any signs of depression with provider Encouraged her to contact OB provider about abdomen tightness if she continues to feel concerned. Recent blood sugar results Benefits, resources, and nutrition for recommendations for nutrition and physical activity recommendations for T2DM risk reduction OGTT at 6-12 weeks Potential for checking blood sugars twice per week (goal: fasting <100 mg/dL and 2 hour pc <140 mg/dL) until 6 week check-up HgA1c q 1-3 years. Goals: Keep rice to 1c (no more than 1.5c in a sitting)- met Keep walking daily safely- met Try to add vegetables to lunch and dinner regularly- met Add pro to morning snack- new Message provider with any concerns- new Get OGTT 6-12 weeks - new Follow-up: TARA MORELAND follow-up prn Lawanda Sheppard RDN, ANICETO Certified Diabetes Care and Fireperson T: [phone] F: [phone] [email or web address] Thank you for this referral
== END ==
PROVIDERS: PCP Student in an Organized Health Care Education/Training Program; Referring Provider Obstetrics & Gynecology; Visit Provider Obstetrics & Gynecology
DX: O24.419 Gestational diabetes mellitus in pregnancy, unspecified control (principal); Z3A.34 34 weeks gestation of pregnancy
CPT/HCPCS: G0108

== ENCOUNTER 2021-11-27 14:30 | Outpatient (CLI) | payer OTHER, SELFPAY ==
[2021-10-03 18:11] VITALS: BMI 24.7
[2021-11-27 15:36] LABS: RBC Urine None Seen (0-5/HPF); WBC Urine None Seen (0-5/HPF)
[2021-11-27 15:37] LABS: Amorphous Sediment Urine 1+; Bacteria Urine None Seen; Squamous Epithelial Cell Urine 5-10 /HPF (0-5/HPF)
[2021-11-27 16:00] LABS: Appearance Urine UA CLEAR; Bilirubin Urine UA NEGATIVE (NEGATIVE); Color Urine UA YELLOW; Glucose Urine UA 1+ g/dL (Negative); Ketones Urine UA NEGATIVE (NEGATIVE); Leukocyte Esterase Urine UA NEGATIVE (NEGATIVE); Nitrite Urine UA NEGATIVE (Negative); Occult Blood Urine UA NEGATIVE (Negative); Protein Urine UA NEGATIVE (Negative); Specific Gravity Urine UA <=1.005 (1.000-1.035); Urobilinogen Urine UA 0.2 E.U./dL (0.2)
== END 2021-11-27 16:30 | disposition home or self-care (01) ==
LOC: LABOR 15:20 → OB 11-28 14:26
PROVIDERS: PCP Student in an Organized Health Care Education/Training Program; Referring Provider Obstetrics & Gynecology; Visit Provider Obstetrics & Gynecology
DX: O26.893 Other specified pregnancy related conditions, third trimester (principal); Z3A.35 35 weeks gestation of pregnancy; Z87.440 Personal history of urinary (tract) infections; R10.9 Unspecified abdominal pain; O24.410 Gestational diabetes mellitus in pregnancy, diet controlled
CPT/HCPCS: 59025; 81001; 87086; G0378; G0379

== ENCOUNTER → 2021-12-12 13:43 | Outpatient (CLI) | payer OTHER, SELFPAY ==
[2021-10-03 18:11] VITALS: BMI 24.7
[2021-12-14 07:40] LABS: Strep Grp B PCR NEG for Grp B Strep
== END ==
PROVIDERS: PCP Student in an Organized Health Care Education/Training Program; Visit Provider Physician Assistant Medical
DX: Z34.03 Encounter for supervision of normal first pregnancy, third trimester (principal); Z3A.37 37 weeks gestation of pregnancy
CPT/HCPCS: 87653

== ENCOUNTER 2021-12-15 19:14 | Inpatient (IN) | payer OTHER, SELFPAY ==
[2021-10-03 18:11] VITALS: BMI 24.7
--- NOTE | 2021-12-15 20:06 | PM.OBHP.IH.1 ---
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 Estimated Delivery Date Method Current WG Current Estimate 12/31/21 Ultrasound #2 37w 5d Other Estimates 12/29/21 LMP (Uncertain) 38w 0d 01/01/22 Ultrasound #1 37w 4d Estimated Gestational Age (weeks): 37 5/7 : 1 Narrative: Gross rupture (PROM) - clear fluid about 1830 care: initiated at week # (19+) Dating criteria OB: based on 2nd trimester US only Obstetrical complications: gestational diabetes (diet controlled) Medical complications OB: genitourinary Narrative: hx of pyelonephritis at 28 weeks Preadmission Labs Last OB Lab Results: Blood Type A Positive 05/07/21 12:30 Antibody Screen Negative 10/01/21 17:16 Hematocrit 30.6 % (36-46) L 10/04/21 06:38 Hemoglobin 10.4 g/dL (12.0-16.0) L 10/04/21 06:38 Glucose 1 Hour 155 mg/dL (76-139) H 10/01/21 17:16 Group B Streptococcus (PCR) Neg for grp b strep 12/12/21 22:55 Evaluation Evaluation Baseline heart rate: 120 Status: Category l Comments: not examined - ruptured, not in labor PFSH Medical History No significant past medical history Surgical History No history of previous surgery Family History Father Heart attack Grandmother Breast cancer Grandfather Diabetes mellitus Cancer Social History marital status: unmarried,living together number of children: 0 household members: significant other lives independently: Yes housing: apartment pets and animals: No 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) vanessa/evangelical: [employer] [place] seatbelt use: always water heater temp set < 120 deg: Yes working smoke detector in home: Yes fire extinguisher in home: Yes carbon monox detector in home: Yes firearms in home: No do you feel safe at home: Yes Smoking Status: Never smoker second hand exposure: No alcohol intake: former substance use type: does not use during the past year weight has: remained stable well-balanced diet: daily or most days daily servings fruits/ve-4 caffeine: Yes (200mg daily) Type(s) of exercise: additional (stretching) Meds Home Medications and Allergies Home Medications Medication Instructions Recorded Confirmed Type prenat.vits,jason,gin-talb-gjrqh 1 tab PO DAILY 08/07/21 12/12/21 History triamcinolone acetonide 0.1 % 1 applic topical DAILY 08/08/21 12/12/21 History topical cream ampicillin 500 mg capsule 500 mg PO QID urine infection #28 10/04/21 12/12/21 Rx caps blood sugar diagnostic (Blood #120 ea 10/11/21 12/12/21 Rx Glucose Test strips) blood-glucose meter (Blood Glucose #1 ea 10/11/21 12/12/21 Rx Monitoring kit) lancets #120 ea 10/11/21 12/12/21 Rx nitrofurantoin macrocrystal 50 mg 50 mg PO BEDTIME #30 caps 10/15/21 12/12/21 Rx capsule (Macrodantin) Allergies Allergy/AdvReac Type Severity Reaction Status Date / Time No Known Drug Allergies Allergy Verified 12/12/21 13:17 Review of Systems Review of Systems ROS: Yes All systems reviewed with the patient and are negative except as otherwise documented OB Exam HENMT Head: normal to inspection Eyes General: appearance normal, both eyes and all related structures Resp Effort & Inspection: normal respiratory effort Cardio Rate: regular rate Rhythm: regular rhythm Extremities Lower extremity: Yes normal to inspection GI Inspection: normal to inspection Palpation: Yes soft OB/External & Speculum: deferred Presentation: vertex (by bedside US) Estimated Weight (lbs): 7 Amniotic Fluid: clear Assessment and Plan Assessment and Plan Assessment and Plan narrative: Primip at 37 5/7 with PROM - starting to feel ctx - expectant management GBS negative Covid pending undecided about epidural / pain management Tracing reassuring Admit to L&D
[2021-12-15 20:57] VITALS: BP 124/80
[2021-12-15 21:26] LABS: Add Manual Diff / Slide Review NO; Basophils Absolute Auto 100 /uL (0-100); Basophils Percent Auto 0.5 % (0-2); Eosinophils Absolute Auto 100 /uL (0-450); Eosinophils Percent Auto 0.8 % (2-4); Hemoglobin 12.7 g/dL (12.0-16.0); Lymphocytes Absolute Auto 2000 /uL (1100-4500); Lymphocytes Percent Auto 15.8 % (25-40); Mean Corpuscular HGB Conc 33.3 % (30-36); Mean Corpuscular Hemoglobin 29.4 PG (26-34); Mean Corpuscular Volume 88.1 fL (80-100); Monocytes Absolute Auto 1100 /uL (0-900); Neutrophils Absolute Auto 9200 /uL (1500-7000); Neutrophils Percent Auto 73.9 % (50-75); Platelet Count 265 X10^3/uL (150-400); Red Blood Cell Count 4.32 X10^6/uL (4.0-5.2); Red Cell Distribution Width 15.2 % (11.6-14.8); White Blood Cell Count 12.5 X10^3/uL (4.5-11.0)
[2021-12-15 21:33] LABS: COVID19 -Nasal RAPID Negative (Negative)
--- NOTE | 2021-12-16 00:16 | PM.OBPNLAB ---
Date/Time Date Patient Seen: 12/16/21 Time Patient Seen: 00:17 Pain Control Comments: was feeling some ctx but now sleeping Pelvic Exam Comments: pelvic exam deferred Contractions Contractions on admission: none Status status: Category l Assessment and Plan Assessment: other Comments: Primip PROM - no evidence of infection Awaiting ctx - will begin pitocin when pt awakens (before 12 hours post rupture) Intermittent monitoring - cat 1 GBS and Covid negative
[2021-12-16] MEDS: OXYTOCIN PREMIX 30 UNIT/500 ML PLAST..BAG IV (01:13)
[2021-12-16] MEDS: LACTATED RINGERS 1,000 ML 100 ML IV ×4 (01:13→19:33)
--- NOTE | 2021-12-16 03:07 | PM.OBPNLAB ---
Date/Time Date Patient Seen: 12/16/21 Time Patient Seen: 03:07 Pain Control Pain control: tolerating well (breathing through contractions) Pelvic Exam Amniotic membrane status: Ruptured Contractions Contractions on admission: regular Monitor mode: External Pitocin rate (mU/min): 3 Contraction frequency (min): 3 Contraction pattern: Regular Contraction intensity: Moderate Status status: Category l Heart Rate Baseline: 140 Assessment and Plan Assessment: other Comments: Primip / PROM / good response to augmentation (pitocin) Tracing reassuring CPM
--- NOTE | 2021-12-16 04:12 | P.PCN_ITS ---
Regional Block Pre-procedure Procedure: Continuous Lumbar Epidural for L&D Attending OB provider: Christa Corley PMH/ROS narrative: term, SROM, GDM diet controlled. ASA Class: II Labs: Hct 38.0 % (36-46) 12/15/21 21:08 Plt Count 265 X10^3/uL (150-400) 12/15/21 21:08 Medications: Current Medications Generic Name Dose Route Start Last Admin Trade Name Freq PRN Reason Stop Dose Admin Calcium Carbonate 1,000 mg 12/15/21 20:54 Calcium Carbonate 500 Mg Tab PO Q2HR PRN Dyspepsia Carboprost Tromethamine 250 mcg 12/15/21 20:54 Carboprost 250 Mcg/Ml Ampul IM Q90M PRN Bleeding Fentanyl 50 mcg 12/15/21 20:54 Fentanyl 100 Mcg/2 Ml Inj IV Q1H PRN Pain, Moderate (4-6) Lactated Ringer's 1,000 mls @ 100 mls/hr 12/15/21 21:00 12/16/21 03:57 Lactated Ringers IV 100 mls/hr CONT CHERYL Administration Oxytocin/Lactated Ringer's 30 unit in 500 mls @ 200 mls/hr 12/15/21 20:54 Oxytocin Premix IV CONT PRN Bleeding Protocol Tranexamic Acid 1,000 mg/ 100 mls @ 200 mls/hr 12/15/21 20:54 Sodium Chloride IV NOW PRN Bleeding Oxytocin/Lactated Ringer's 30 unit in 500 mls @ 3 mls/hr 12/15/21 21:00 12/16/21 01:13 Oxytocin Premix IV 2 milliunit/min TITRATE CHERYL 2 mls/hr Administration Protocol 3 MILLIUNIT/MIN Methylergonovine Maleate 0.2 mg 12/15/21 20:54 Methylergonovine 0.2 Mg Tablet PO Q6HR PRN Heavy Bleeding Methylergonovine Maleate 0.2 mg 12/15/21 20:54 Methylergonovine 0.2 Mg/Ml Vial IM NOW PRN Bleeding Metoclopramide HCl 10 mg 12/15/21 20:54 Metoclopramide 10 Mg/2 Ml Inj IV NOW PRN Nausea And Vomiting Misoprostol 800 mcg 12/15/21 20:54 Misoprostol 200 Mcg Tablet AZ NOW PRN Bleeding Misoprostol 1,000 mcg 12/15/21 20:54 Misoprostol 200 Mcg Tablet [place] NOW PRN Bleeding Misoprostol 400 mcg 12/15/21 20:54 Misoprostol 200 Mcg Tablet SL NOW PRN Bleeding Naloxone HCl 0.2 mg 12/15/21 20:54 Naloxone 0.4 Mg/Ml Vial IV Q2MIN PRN Opiate Reversal Ondansetron HCl 4 mg 12/15/21 20:54 Ondansetron 4 Mg/2 Ml Inj IV Q4HR PRN Nausea And Vomiting Oxytocin 10 unit 12/15/21 20:54 Oxytocin 10 Unit/Ml Vial IM NOW PRN Bleeding Allergies: Allergies Allergy/AdvReac Type Severity Reaction Status Date / Time No Known Drug Allergies Allergy Verified 12/15/21 21:02 Procedure Insertion date: 12/16/21 Insertion time: 04:30 Prep/Local: betadine x3 and 1% lidocaine Interspace: L3-4 Patient position: sitting Needle: [address] (CSE: 27g Penan through [place], clear CSF, 1mL 0.25% bupiv MPF) Loss of resistance with: saline RAHEL at (cm): 5 Catheter placed at SKIN (cm): 10 Catheter in SPACE (cm): 5 Insertion: No CSF, No Blood, No Paresthesia with insertion, No Paresthesia with injection and No Test dose reaction Initial Medications TEST DOSE time: 04:30 TEST DOSE: 1.5% lidocaine with epinephrine 1:200k (mL): 3 BOLUS DOSE time: 04:40 BOLUS DOSE (mL): 5 BOLUS DOSE med: other (infusate) Infusion INFUSION: 0.125% bupivacaine and with fentanyl 2 mcg/mL Initial rate (mL/hr): 7 Subsequent interventions: To C Section Post-procedure Anesthesia time START: 04:20 Anesthesia time END: 22:03 Post-procedure Anesthesia Assessment: Yes CV function: HR/BP stable, Yes Resp function: RR/sat/airway adequate, Yes Mental status appropriate and No Anesthesia complications
[2021-12-16] MEDS: FENT 2MCG/ML BUPIV 0.125% EPI 200 MCG/100 ML PLAST..BAG 6 MCG EPIDURAL (04:45)
--- NOTE | 2021-12-16 06:04 | PM.OBPNLAB ---
Date/Time Date Patient Seen: 12/16/21 Time Patient Seen: 06:04 Pain Control Pain control: epidural Comments: sleeping Pelvic Exam Dilation (cm): 2 (per RN at 0445) Effacement (%): 50 station: -3 Amniotic membrane status: Ruptured Contractions Contractions on admission: irregular Monitor mode: External Pitocin rate (mU/min): 4 Contraction frequency (min): 3 Contraction pattern: Regular Contraction intensity: Moderate Status status: Category l Assessment and Plan Assessment: other Comments: primip at 36 6/7 PROM 1830 Pitocin 0115 Epidural 430 GBS negative Covid negative Tracing reassuring Anticipate (FOB 11# at )
--- NOTE | 2021-12-16 07:55 | PM.OBPNLAB ---
Date/Time Date Patient Seen: 12/16/21 Time Patient Seen: 07:56 Pain Control Pain control: epidural Comments: H&P reviewed. Pt woth PROM at 37wk5d. GBS negative Pelvic Exam Dilation (cm): 2 Effacement (%): 50 station: -3 Amniotic membrane status: Ruptured Comments: Cervix not recheck, checked at 4:45 a.m. Contractions Contractions on admission: regular Monitor mode: External Pitocin rate (mU/min): 5 Contraction frequency (min): 3 Contraction pattern: Regular Contraction intensity: Moderate Status status: Category l Heart Rate Baseline: 130 Monitor Accelerations: Present Monitor Decelerations: Periodic (one variable decel at 07) Monitor Variability: Moderate Comments: one Mild variable deceleration at 7:30 a.m., no other T-cells. Back to category 1. Assessment and Plan Assessment: induction ongoing Comments: PROM at 37+ weeks, GBS- Patient on Pitocin 5 milliunits per minute. She was still early labor, cervix 50% effaced at 0445, discussed will not recheck cervix for few hours. patient received an early epidural, will recheck her progress in few hours and titrate Pitocin as needed.
[2021-12-16] MEDS: FENT 2MCG/ML BUPIV 0.125% EPI 200 MCG/100 ML PLAST..BAG 7 MCG EPIDURAL (12:50)
[2021-12-16 18:13] VITALS: TEMP 37.9
[2021-12-16] MEDS: ACETAMINOPHEN 325 MG TABLET 650 MG PO (18:13)
[2021-12-16] MEDS: AMPICILLIN 2,000 MG in SODIUM CHLORIDE 0.9% 100 ML 200 MG IV (18:16)
[2021-12-16 18:55] VITALS: TEMP 37.7
[2021-12-16] MEDS: GENTAMICIN 340 MG in SODIUM CHLORIDE 0.9% 100 ML 108.5 MG IV (19:08)
--- NOTE | 2021-12-16 19:16 | PM.OBPNLAB ---
Date/Time Date Patient Seen: 12/16/21 Time Patient Seen: 18:55 Pain Control Pain control: tolerating well and epidural Pelvic Exam Dilation (cm): 10 Effacement (%): 100 station: -2 Amniotic membrane status: Ruptured Contractions Contractions on admission: regular Monitor mode: External Pitocin rate (mU/min): 0 Contraction frequency (min): 3 Contraction pattern: Regular Contraction intensity: Moderate Status status: Category ll Monitor Accelerations: Episodic Monitor Decelerations: Episodic, Late and Variable Monitor Variability: Moderate Assessment and Plan Assessment: induction ongoing Comments: At approximately 1:30 p.m., patient progressed to 7 cm, FHR with variable deceleration at that time. FHR category to with intermittent variable and late decelerations. No deceleration for some time and then episodic deceleration. Patient continued to progress and is now completely dilated. FHR now having some more frequent decelerations, late decelerations but not with every contraction. Decelerations resolve with patient in her right lateral position, had persisted in left lateral. Pitocin turned off with the episodic moderate variable decelerations, Not turned on since she within have another deceleration after some time.. She has progressed with the Pitocin off. Maternal temp 100.3? F when patient 9 cm. Patient did feel chills. Ampicillin and gentamicin ordered. Ampicillin now infused, gentamicin about to be hung. Tylenol given. Will begin pushing in 30 minutes. Close observation of FHR with pushing.
--- NOTE | 2021-12-16 21:23 | P.PNOB_ITS ---
Date/Time Date Patient Seen: 12/16/21 Time Patient Seen: 21:23 Pain Control Pain control: epidural Pelvic Exam Dilation (cm): 10 Effacement (%): 100 station: -2 Amniotic membrane status: Ruptured Contractions Monitor mode: External Pitocin rate (mU/min): 0 Contraction frequency (min): 3 Contraction pattern: Regular Contraction intensity: Moderate Status status: Category ll Heart Rate Baseline: 155 Monitor Decelerations: Late and Variable Monitor Variability: Minimal (minimal after 2 sequential decelerations, improving with rest back to moderate) Assessment and Plan Assessment: active labor (after augmentation with Pitoin. Continued labor with Pitocin off for hours) Plan: Comments: Severe deceleration with pushing, not with every contraction.. Initially had her push every few contractions. After some contractions noted deceleration, but now recurrent severe variable decelerations with pushing with decreased variability. Patient advised to stop pushing. Variability has return to moderate. However due to severity of decelerations with pushing and with vertex 0 station after 40 minutes of pushing, with inability to assess vaginally, recommended proceeding with section at this time. Patient was pushing well and initially. She would bring the vertex down to possibly cyst vaginally if needed but vertex goes back to 0 station. On exam feels she is OP presentation. Recommended . Patient and understand and agree. Reviewed risk of section including bleeding, infection, injury to adjacent organs including bowel, bladder, urinary system then injury to fetus. Verbal and written consent obtained. OR crew, anesthesia and home improvement contractor called.
--- NOTE | 2021-12-16 22:03 | SUR.OPER ---
Supine on Padded OR bed, head on pillow, safety belt at thigh, arms secured on padded arm boards at <90 degrees abduction. Bump under right buttock. Legs uncrossed with pillow under knees, gel pad to heels, tape over blanket to lower legs.
[2021-12-16] MEDS: CEFAZOLIN 1 GM VIAL IV (22:27)
--- NOTE | 2021-12-16 22:44 | SUR.OPER ---
CORD BLOOD AND PLACENTA TO OB WITH RN.
--- NOTE | 2021-12-16 23:06 | SUR.OPER ---
VIABLE MALE INFANT DELIVERED AT 2300.
[2021-12-16] MEDS: TRANEXAMIC ACID 1,000 MG in SODIUM CHLORIDE 0.9% 100 ML 200 MG IV (23:11)
[2021-12-17] VITALS (9 sets, daily range): BP systolic 125–140; BP diastolic 43–63; PULSE 75–95; RESP 14–20; TEMP 36.7–37.2; O2SAT 100
--- NOTE | 2021-12-17 00:19 | P.PCN_ITS ---
Procedures Date/Time Date of procedure: 12/17/21 Time of procedure: 23:00 General Procedure description: Feed Mill Supervisor Documentation I assisted the OB hand expansion envelope maker in the section for this patient. My responsibilities included retracting and suctioning, providing fundal pressure during delivery and following with suture during closure. Please see the OB's note for details of the surgery.
--- NOTE | 2021-12-17 00:36 | SUR.PHASEI ---
Pt transferred to room 2 in bed. Pt alert, oriented. Tolerating ice chips. Fundus check and lenin pad check done with Duyen RN at bedside with SBAR report. Baby and Baby father in room.
--- NOTE | 2021-12-17 01:07 | PM.PREOP ---
Pre-operative Note COVID-19 COVID-19 status: Negative Result date/Date tested (Pos, Neg/Pending): 12/15/21 Criteria for continued procedure: Deterioration of the patient's condition or overall health Interval Note History & Physical reviewed/Exam performed by Physician: Yes Changes to H&P: Yes H&P completed within 30 days and has changed as indicated here:: Mother with temperature of 100.3? F in labor. Given amoxicillin and gentamicin. No other maternal changes. heart rate pattern with recurrent severe variable decelerations with late component with Loss of heart rate variability in 2nd stage of labor, recommended . With stopping pushing, heart rate variability return some moderate.
--- NOTE | 2021-12-17 01:09 | PM.OP.1 ---
Operative Date/Time/Diagnoses Date of procedure: 12/17/21 Time of procedure: 11:00 Pre-op diagnosis: 37+ week , spontaneous rupture of membranes, intolerance of labor in second stage, probable OP position Post-op diagnosis: same Procedure & Clinicians Procedure: Primary lower transverse section Same procedure as scheduled: Yes Indications: 31-year-old G1 Presented with ruptured membranes without labor at 37 weeks. Pitocin was started for augmentation of labor. She progressed in labor to completely dilated but in the 2nd stage of labor had severe variable decelerations with late component. After 40 minutes of pushing she started having some decreased heart rate variability as well. Station was 0. With the category to EFM, with now losing FHR variability, I recommended proceeding with section for delivery since remote yet from delivery, and she consented. Surgeon: Thuy Mora Jointer Submarine Cable: Ana Hu Click Yes if Unassisted: No Anesthesia Type: Spinal Operative Notes Findings: viable, vigorous male infant delivered, OP position. Subsequent weight was 6 lb 11.6 oz. Normal uterus and bilateral fallopian tubes. After delivery of placenta, she had some persistent light bleeding from the posterior lower uterine segment endometrium, some prominent vascularity noted hat what likely was area of placental attachment. Bleeding observed during closure of the uterus and after massage of low urine segment and giving tranexamic acid 1 g IV with decreased to normal. Closure Type: primary Specimen(s): none sent Applied: catheter Estimated Blood Loss (mL): 700 Blood products transfused: none Procedure in detail: Description of procedure: She was transferred from the center to the operating room. she had a labor epidural. With testing, did not feel that her labor epidural would be adequate and the epidural was removed. Spinal anesthesia was placed. After spinal anesthesia was obtained, she was placed in the supine position.Chávez catheter was previously placed. She was prepped and draped in routine sterile fashion. A Pfannenstiel skin incision was made in the lower abdomen and carried down to the level of the fascia. The fascia was incised in the midline and was bluntly extended transversely. The superior and inferior edges of the fascia were elevated and dissected off the rectus muscles with sharp and blunt dissection. The muscles were bluntly in the midline. The parietal peritoneum was elevated, incised and extended bluntly. the bladder blade retractor was placed. The visceral peritoneum was elevated off the lower uterus, incised and the bladder flap was bluntly created. The bladder blade retractor was re-placed. A transverse incision was made in the lower uterus and the incision was extended transversely with blunt dissection. Clear fluid was noted. The head was elevated to the uterine incision and delivered through the incision with fundal pressure. was in the OP position. Anterior and posterior shoulders followed by the body were delivered without difficulty. The cried spontaneously. Cord was clamped and cut and the infant was handed off to respiratory therapy who was present for delivery. Cord blood was obtained a specimen. The placenta was expressed with uterine massage and cord traction. It appeared intact with a normal three-vessel cord. The uterus was brought through the abdominal incision. The uterus was swept clean of adherent clots and membranes. Visibly in the lower uterine segment on the posterior wall was some prominent vessels in the endometrium with mild persistent oozing from the general endometrium in this area. Massage performed of the lower uterine segment. IV Pitocin had been given. Due to bleeding being from vascularity, suspect due to how placenta was implanted in this area, 1 g tranexamic acid IV given. The uterus was closed in 2 layers with 0 Vicryl, the 1st layer being in running locking continuous fashion and the 2nd layer being in a vertical imbricating type fashion. Observation of the lower uterine segment during closure revealed adequate hemostasis. After closure hemostasis was noted along the uterine incision. The tubes and ovaries were inspected and noted to be normal. Posterior to the uterus was suctioned of some fluid and blood. The uterus was placed back into the maternal abdomen. The paracolic gutters were inspected and wiped of some minimal blood and fluid. The anterior cul-de-sac was inspected and some clot was removed. The uterine incision was re- inspected and good hemostasis was noted. The pelvis was irrigated and suctioned. Repeat inspection showed continued hemostasis. The abdomen was closed. The muscles were reapproximated with 2 interrupted sutures of 0 Vicryl. The fascia was closed with running continuous suture of 0 Vicryl. The skin was closed with a subcuticular suture of 4 0 Monocryl. Steri-Strips and sterile Aquacel dressing was placed. She tolerated the procedure well and went to the recovery room in stable condition. Complications: none Post-operative Condition: stable Disposition: PACU Plan for aftercare: transferred to the floor for routine post care
[2021-12-17] MEDS: ACETAMINOPHEN 325 MG TABLET 650 MG PO ×3 (08:27→22:08)
[2021-12-17] MEDS: DOCUSATE 100 MG CAPSULE 200 MG PO (08:27)
[2021-12-17 09:56] LABS: Add Manual Diff / Slide Review NO; Basophils Absolute Auto 0 /uL (0-100); Basophils Percent Auto 0.1 % (0-2); Eosinophils Absolute Auto 100 /uL (0-450); Eosinophils Percent Auto 0.3 % (2-4); Hematocrit 30.3 % (36-46); Hemoglobin 10.3 g/dL (12.0-16.0); Lymphocytes Absolute Auto 1000 /uL (1100-4500); Lymphocytes Percent Auto 4.8 % (25-40); Mean Corpuscular HGB Conc 33.9 % (30-36); Mean Corpuscular Hemoglobin 29.8 PG (26-34); Monocytes Absolute Auto 1200 /uL (0-900); Monocytes Percent Auto 5.6 % (3-14); Neutrophils Absolute Auto 19300 /uL (1500-7000); Neutrophils Percent Auto 89.2 % (50-75); Platelet Count 217 X10^3/uL (150-400); Red Blood Cell Count 3.44 X10^6/uL (4.0-5.2); White Blood Cell Count 21.6 X10^3/uL (4.5-11.0)
--- NOTE | 2021-12-17 13:00 | DI.US.S_ITS ---
PROCEDURE: US PERIPH VENOUS LOW EXTREM RT INDICATIONS: r/o RLE DVT TECHNIQUE: Real-time imaging, as well as color and pulse Doppler interrogation, were performed of the lower extremity deep veins from the inguinal ligament to the popliteal fossa. COMPARISON: None. FINDINGS: The common femoral, femoral and popliteal veins are normally compressible, and free of intraluminal thrombus. Color and pulse Doppler demonstrate normal phasic intraluminal flow. There is normal augmentation response to distal compression maneuver. IMPRESSION: Negative for deep venous thrombosis. Dictated by: Delvis Angelo M.D. on 12/17/2021 at 13:04 Approved by: Delvis Angelo M.D. on 12/17/2021 at 13:04
--- NOTE | 2021-12-17 13:02 | PM.OBPN.1 ---
Subjective - OB Subjective Narrative: Patient reports pain in her right calf and behind knee with ambulating. With decelerations during labor, she was on her right side much of late labor and with pushing. No other problems. Lochia normal. Incisional discomfort currently controlled. is going well. Tolerating regular diet. No flatus yet. Ambulating in room some, +right calf discomfort. Chávez some place. Date Patient Seen: 12/17/21 Time Patient Seen: 12:50 Exam Vital Signs (past 8 hours): - 12/17/21 08:27 Temperature 98.6 F Oxygen Delivery Method Room Air Narrative Exam Narrative: General: ?Well-appearing female Abdomen: ?Soft, nontender, nondistended. Dressing is dry and intact?Fundus @U, firm, nontender Extremities: ?Trace pedal edema bilaerally, equal bilaterally. RLE: Calf tenderness, and behind right knee. No LLE tenderness. Objective Labs Result Diagrams: 12/17/21 09:27 Labs: Laboratory Results - last 24 hr 12/17/21 09:27 WBC 21.6 H D RBC 3.44 L Hgb 10.3 L Hct 30.3 L MCV 88.0 MCH 29.8 MCHC 33.9 RDW 15.0 H Plt Count 217 Neut % (Auto) 89.2 H Lymph % (Auto) 4.8 L [place] % (Auto) 5.6 Eos % (Auto) 0.3 L Baso % (Auto) 0.1 Neut # (Auto) 28221 H Lymph # (Auto) 1000 L [place] # (Auto) 1200 H Eos # (Auto) 100 Baso # (Auto) 0 Assessment & Plan Plan day: 1 plan OB: other Comments: Doppler RLE ordered, rule out DVT. Discussed likely musculoskeletal, with positioning during labor, but if increased risk factors with for clotting, will evaluate for DVT. Chávez to be discontinued shortly. Continue to increase ambulation. Continue other routine postoperative care. Time Spent With Patient Time: Total time spent is greater than 50% in coordination of care (as documented) at patient's floor/unit and/or counseling patient: Time with patient: less than 15 minutes
[2021-12-17] MEDS: IBUPROFEN 600 MG TABLET PO ×2 (13:59→22:09)
[2021-12-17] MEDS: OXYCODONE IR 5 MG TABLET PO ×2 (17:56→22:14)
[2021-12-18] MEDS: OXYCODONE IR 5 MG TABLET PO ×2 (03:25→09:41)
[2021-12-18] MEDS: DOCUSATE 100 MG CAPSULE 200 MG PO (09:40)
[2021-12-18 09:41] VITALS: TEMP 36.9
[2021-12-18] MEDS: IBUPROFEN 600 MG TABLET PO (09:41)
[2021-12-18] MEDS: ACETAMINOPHEN 325 MG TABLET 650 MG PO (09:41)
--- NOTE | 2021-12-18 13:43 | P.DS_ITS ---
Discharge Providers Provider Date of admission: 12/15/21 19:14 Discharge Date: 12/18/21 Primary care physician: Ivette Wasserman MD Consults: 12/15/21 20:56 Consult to Anesthesiology Urgent Comment: Consulting Provider: Anesthesiologist Reason for consultation: Labor 12/17/21 00:51 Consult to Corporate Driver Routine Comment: Discharge provider: Thuy Mora MD Summary Hospital Course Date Patient Seen: 01/18/22 Diagnoses: status post primary section 37 week , delivered Premature rupture membranes, labor, nonreassuring heart rate pattern in 2nd stage Hospital Course: 32-year-old G1 female admitted at 37 weeks with ruptured membranes. She was started on Pitocin for induction of labor. She progressed in labor to comp letely dilated. In the 2nd stage of labor she had a category 2 EFM with variable decelerations which became moderate to severe. After 40 minutes of the 2nd stage, EFM had some loss of heart rate variability and with station being only 0 station, recommendation was for primary section. With stopping pushing, heart rate variability did improve. She underwent primary lower section without complications. Baby was noted to be in the OP position. She delivered a viable male . Both mother and infant have done well. She has met normal postoperative parameters and she desires discharge home on postoperative day 1. She is being discharged in good condition. Follow-up appointment in 1 week for Aquacel dressing removal. Peripartum Data Infant Delivery Method: Section Episiotomy description: None complications: none [place] 1: Gender: Male Disposition of : home Status at Discharge Cognitive/behavioral status at discharge: oriented Functional status at discharge: independent ambulation Overall status at discharge: patient is progressing back to baseline Time Spent with Patient Time attestation: Total time spent providing and/or coordinating discharge services: Time spent: Less than 30 minutes Objective Labs Result Diagrams: 12/17/21 09:27 Exam Vital Signs (past 8 hours): - 12/18/21 09:41 12/18/21 09:41 12/18/21 09:41 Temperature 98.4 F 98.4 F 98.4 F Oxygen Delivery Method Room Air Narrative Exam Narrative: General: Well-appearing female in no acute distress Pulmonary: Normal inspiratory effort Abdomen: Soft, nondistended, expected mild tenderness near dressing, otherwise nontender. Dressing is intact and dry Extremities: Trace pedal edema Discharge Plan Discharge Plan Patient Disposition: Home Provider Discharge Comment: s/p primary section for intolerance of labor Discharge orders & Medications Prescriptions: Continued prenat.vits,jason,[id number] Tablet 1 tab PO DAILY triamcinolone acetonide 0.1 % cream 1 applic topical DAILY Discontinued (DME) Blood Glucose Test Strip See Rx Instructions .ROUTE .MEDSUPPLY Qty: 120 3RF Rx Instructions: Testing blood sugars fasting and 2 hr PP (DME) lancets Misc See Rx Instructions .ROUTE .MEDSUPPLY Qty: 120 3RF Rx Instructions: Testing blood sugars fasting and 2 hr PP (DME) blood-glucose meter [Blood Glucose Monitoring] Kit See Rx Instructions .ROUTE .MEDSUPPLY Qty: 1 0RF Rx Instructions: To use with testing fasting and 2 hr PP blood sugars No Action sumatriptan succinate [Imitrex] 50 mg tablet See Rx Instructions PO .COMPLEX Qty: 6 0RF Rx Instructions: take 1 tab at onset of headache; if no relief may repeat 1 tab after at least 2 hrs; max = 4 tabs/24 hr PO Follow up/Referrals: Ivette Wasserman MD [Primary Care Provider] - Thuy Mora MD [Physician] - 1 Week (for incision check and 6 week appt on 01/30/2022 @ 1030) Discharge Health Status Multidrug resistant organism: No MDRO Diet/Activity/Treatments Diet: Regular Diet comment: You may resume a regular diet. You do not need to follow a diabetic diet Activity: nothing in the vagina for 6 weeks Skin/Wound/Dressing Care Report to your healthcare provider any signs of infection, such as:: chills, fever, increased pain, unusual drainage and unusual redness Visit Report/Discharge Packet Instructions: DI for , DI for Depression Stand Alone Forms: Discharge: Care Discharge Data Primary Care Provider: Ivette Wasserman
[2021-12-18 14:36] VITALS: TEMP 37.2
[2021-12-18] MEDS: OXYCODONE IR 10 MG TABLET PO (14:36)
[2021-12-18 17:52] VITALS: BP 107/61; PULSE 83; RESP 16; TEMP 36.9
== END 2021-12-18 19:00 | disposition home or self-care (01) | DRG 788 ==
PROVIDERS: Obstetrics & Gynecology; Admitting Provider Obstetrics & Gynecology; PCP Student in an Organized Health Care Education/Training Program; Referring Provider Obstetrics & Gynecology; Visit Provider Obstetrics & Gynecology
PROC: (CPT 59514; principal; 2021-12-16 22:30)
DX: O24.420 Gestational diabetes mellitus in childbirth, diet controlled (principal); Z3A.37 37 weeks gestation of pregnancy; Z37.0 Single live birth; O76 Abnormality in fetal heart rate and rhythm complicating labor and delivery; O42.02 Full-term premature rupture of membranes, onset of labor within 24 hours of rupture; O64.0XX0 Obstructed labor due to incomplete rotation of fetal head, not applicable or unspecified; Z20.822 Contact with and (suspected) exposure to COVID-19
CPT/HCPCS: 01967; 01968; 36415; 59050; 59515; 85025; 86850; 86900; 86901; 87635; 93971; C9803; G0379; J0290; J0690; J1885; J2250; J2274; J2405; J2590; J2704; J3010

== ENCOUNTER → 2022-08-08 14:01 | Outpatient (CLI) | payer OTHER, SELFPAY ==
[2021-10-03 18:11] VITALS: BMI 24.7
--- NOTE | 2022-08-08 14:02 | DI.US.S_ITS ---
PROCEDURE: US PELVIC COMPLETE INDICATIONS: Lower abdominal pain, check IUD placement TECHNIQUE: Real-time scanning was performed of the pelvic organs, with image documentation. Additional endovaginal scanning was necessary due to incomplete visualization of the adnexal and endometrial structures by transabdominal scanning. COMPARISON: None. FINDINGS: Uterus: Uterus is anteverted and normal in size at 6.9 x 3.4 x 4.6 cm. The myometrium is heterogeneous. No discrete uterine fibroid is seen. The endometrium measures 6 mm combined thickness. No endometrial mass or fluid. Intrauterine device is seen in its normal central endometrial location. Ovaries: The right ovary measures 4 x 2.1 x 2.2 cm, with a calculated ovarian volume of 9.6 cc. The left ovary measures 4.1 x 1.7 x 1.5 cm, with a calculated ovarian volume of 5.4 cc. The ovaries have a normal sonographic appearance. No adnexal masses are seen. Other: No pathologic free abdominal or pelvic fluid. IMPRESSION: Intrauterine device is noted in its normal central endometrial location. No endometrial mass or fluid. No discrete uterine fibroids. Normal appearing bilateral ovaries. We strive to produce accurate, complete, and clear reports of imaging services. To assist us in improving patient care, this report was composed using standard report templates and voice recognition software. Therefore, it may contain abnormal punctuation, insertions and/or omissions. Occasional wrong-word or sound-alike substitutions may occur. Though we review the report and make efforts to correct it, we do recommend that the report be read carefully in proper context to recognize any text inaccuracies. Dictated by: Jason Villareal M.D. on 08/08/2022 at 16:56 Approved by: Jason Villareal M.D. on 08/08/2022 at 17:01
== END ==
PROVIDERS: PCP Student in an Organized Health Care Education/Training Program; Referring Provider Obstetrics & Gynecology; Visit Provider Obstetrics & Gynecology
DX: R10.30 Lower abdominal pain, unspecified (principal); Z30.431 Encounter for routine checking of intrauterine contraceptive device
CPT/HCPCS: 76830; 76856

== ENCOUNTER 2022-11-17 17:26 | Emergency (ER) | payer OTHER, SELFPAY ==
[2021-10-03 18:11] VITALS: BMI 24.7
[2022-11-17 17:30] VITALS: BP 118/71; PULSE 79; RESP 18; TEMP 36.8; O2SAT 100; BMI 23.3
[2022-11-17] MEDS: SODIUM CHLORIDE 0.9% 1,000 ML 1000 ML IV (18:07)
[2022-11-17 18:09] LABS: Add Manual Diff / Slide Review NO; Basophils Absolute Auto 100 /uL (0-100); Basophils Percent Auto 0.8 % (0-2); Eosinophils Absolute Auto 400 /uL (0-450); Eosinophils Percent Auto 4.3 % (2-4); Hematocrit 41.7 % (36-46); Hemoglobin 14.3 g/dL (12.0-16.0); Lymphocytes Absolute Auto 2600 /uL (1100-4500); Lymphocytes Percent Auto 31.7 % (25-40); Mean Corpuscular HGB Conc 34.4 % (30-36); Mean Corpuscular Hemoglobin 30.3 PG (26-34); Monocytes Absolute Auto 700 /uL (0-900); Monocytes Percent Auto 8.2 % (3-14); Neutrophils Absolute Auto 4600 /uL (1500-7000); Platelet Count 301 X10^3/uL (150-400); Red Blood Cell Count 4.73 X10^6/uL (4.0-5.2); Red Cell Distribution Width 13.3 % (11.6-14.8); White Blood Cell Count 8.3 X10^3/uL (4.5-11.0)
[2022-11-17 18:23] VITALS: BP 126/70; PULSE 76; PULSE 78; RESP 20; TEMP 36.6; O2SAT 100; O2SAT 99
[2022-11-17 18:27] LABS: Alanine Aminotransferase 28 IU/L (<35); Albumin Globulin Ratio 1.2 (1.0-2.8); Alkaline Phosphatase 52 U/L (38-126); Aspartate Aminotransferase 29 IU/L (14-36); BUN Creatinine Ratio 15.8 (6-22); Bilirubin Total 0.3 mg/dL (0.2-1.3); Blood Urea Nitrogen 9 mg/dL (7-17); Calcium 9.1 mg/dL (8.4-10.2); Carbon Dioxide 30 mmol/L (22-32); Chloride 99 mmol/L (98-107); Estimated Glomerular Filt Rate > 60 mL/min (>60); Globulin 4.2 g/dL (1.7-4.1); Glucose 98 mg/dL (70-100); Lipase 161 U/L (23-300); Potassium 4.2 mmol/L (3.4-5.1); Sodium 138 mmol/L (137-145); Total Protein 9.2 g/dL (6.3-8.2)
[2022-11-17 18:28] LABS: HEMOLYSIS 64 (0-50)
[2022-11-17 18:30] VITALS: BP 118/69; PULSE 78; O2SAT 100
--- NOTE | 2022-11-17 18:47 | ED_ITS ---
HPI - General Adult General Chief complaint: Urogenital-Female Stated complaint: UTI Time Seen by Provider: 11/17/22 18:00 Source: patient Mode of arrival: Ambulatory History of Present Illness HPI narrative: Patient is a 32-year-old female. She does have a history of kidney infections from prior urinary tract infections she states that couple days ago she started to have frequency and urgency and other dysuria symptoms. She was seen at the [facility]. She was told that she would a urinary tract infection. She was started on Macrobid. She is been taking the Macrobid as directed. States her symptoms have not improved and actually worsened somewhat. She is now having left-sided flank pain. No vomiting. No fevers. No change in bowel habits. Related Data Home Medications Medication Instructions Recorded Confirmed prenat.vits,jason,[id number] 1 tab PO DAILY 08/07/21 03/13/22 triamcinolone acetonide 0.1 % 1 applic topical DAILY 08/08/21 03/13/22 topical cream Previous Rx's Medication Instructions Recorded sumatriptan succinate 50 mg tablet See Rx Instructions PO .COMPLEX 12/25/21 (Imitrex) Headache #6 tabs sulfamethoxazole 800 1 tab PO BID 14 days #28 tabs 11/17/22 mg-trimethoprim 160 mg tablet (Bactrim DS) Allergies Allergy/AdvReac Type Severity Reaction Status Date / Time No Known Drug Allergies Allergy Verified 11/17/22 17:35 Review of Systems Constitutional Constitutional: Reports system reviewed and no additional complaints, except as documented Gastrointestinal Gastrointestinal: Reports system reviewed and no additional complaints, except as documented Genitourinary Genitourinary: Reports system reviewed and no additional complaints, except as documented Integumentary/Breasts Skin/Breast: Reports system reviewed and no additional complaints, except as documented Neurologic Neurologic: Reports system reviewed and no additional complaints, except as doc umented Patient History Medical History No significant past medical history Surgical History No history of previous surgery Family History Father Heart attack Grandmother Breast cancer Grandfather Diabetes mellitus Cancer Social History (Reviewed 11/18/22 @ 02:13 by SANDI Harmon marital status: unmarried,living together number of children: 0 household members: significant other lives independently: Yes housing: apartment pets and animals: No 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) vanessa/yarsanism: [employer] of [place] seatbelt use: always water heater temp set < 120 deg: Yes working smoke detector in home: Yes fire extinguisher in home: Yes carbon monox detector in home: Yes firearms in home: No do you feel safe at home: Yes Smoking Status: Never smoker second hand exposure: No alcohol intake: former substance use type: does not use during the past year weight has: remained stable well-balanced diet: daily or most days daily servings fruits/ve-4 caffeine: Yes (200mg daily) Type(s) of exercise: additional (stretching) Smoking Status: Never smoker alcohol intake frequency: holidays/special occasions only Substance Use Type: does not use Exam Initial Vital Signs Initial Vital Signs: Vital Signs Temperature 98.2 F 11/17/22 17:30 Pulse Rate 79 11/17/22 17:30 Respiratory Rate 18 11/17/22 17:30 Blood Pressure 118/71 11/17/22 17:30 Pulse Oximetry 100 11/17/22 17:30 Oxygen Delivery Method Room Air 11/17/22 17:30 HENMT Head: normal to inspection and normocephalic Resp Effort & Inspection: normal respiratory effort Cardio Rate: regular rate GI Inspection: normal to inspection Palpation: soft and No tender Back/Spine/Pelvis Back: CVA tenderness left Skin General: no rashes or lesions noted Neuro General: patient alert, patient awake and moves all extremities Extrem General: capillary refill normal Course Orders Ordered: ED Orders 11/17/22 18:00 Complete Blood Count AUTO DIFF Stat Comprehensive Metabolic Panel Stat Lipase Stat Discontinued Medications Sodium Chloride (Normal Saline 0.9%) 1,000 mls @ 1,000 mls/hr IV BOLUS ONE Stop: 11/17/22 18:44 Last Infusion: 11/17/22 19:17 Dose: 0 mls/hr Documented By: Admin: 11/17/22 18:07 Dose: 1,000 mls/hr Documented By: MILLY Ondansetron HCl (Ondansetron 4 Mg Odt) 4 mg PO NOW PRN PRN Reason: Nausea And Vomiting Ondansetron HCl (Ondansetron 4 Mg/2 Ml Inj) 4 mg IV NOW PRN PRN Reason: Nausea And Vomiting Trimethoprim/Sulfamethoxazole (Trimeth/Sulfa 160/800 (Ds) Tablet) 1 tab PO NOW ONE Stop: 11/17/22 18:48 Last Admin: 11/17/22 19:14 Dose: 1 tab Documented By: Vital Signs Vital signs: Vital Signs - 8 hr 11/17/22 18:23 11/17/22 18:23 11/17/22 18:30 Temperature 98 F Pulse Rate 78 76 Respiratory Rate 20 Blood Pressure 126/70 118/69 Pulse Oximetry 99 100 Oxygen Delivery Method Room Air 11/17/22 18:30 11/17/22 19:00 11/17/22 19:00 Temperature Pulse Rate 78 90 Respiratory Rate Blood Pressure 121/70 Pulse Oximetry 100 100 Oxygen Delivery Method Medical Decision Making Lab Data Lab results reviewed: Yes I reviewed the patient's lab results. 11/17/22 18:00 11/17/22 18:00 Labs: Lab Results 11/17/22 11/17/22 Range/Units 18:00 18:00 WBC 8.3 (4.5-11.0) X10^3/uL RBC 4.73 (4.0-5.2) X10^6/uL Hgb 14.3 (12.0-16.0) g/dL Hct 41.7 (36-46) % MCV 88.0 (80-100) fL MCH 30.3 (26-34) PG MCHC 34.4 (30-36) % RDW 13.3 (11.6-14.8) % Plt Count 301 (150-400) X10^3/uL Neut % (Auto) 55.0 (50-75) % Lymph % (Auto) 31.7 (25-40) % [place] % (Auto) 8.2 (3-14) % Eos % (Auto) 4.3 H (2-4) % Baso % (Auto) 0.8 (0-2) % Neut # (Auto) 4600 (5645-5129) /uL Lymph # (Auto) 2600 (1998-9602) /uL [place] # (Auto) 700 (0-900) /uL Eos # (Auto) 400 (0-450) /uL Baso # (Auto) 100 (0-100) /uL Sodium 138 (137-145) mmol/L Potassium 4.2 (3.4-5.1) mmol/L Chloride 99 (98-107) mmol/L Carbon Dioxide 30 (22-32) mmol/L BUN 9 (7-17) mg/dL Creatinine 0.57 (0.52-1.04) mg/dL Estimated GFR > 60 (>60) mL/min BUN/Creatinine Ratio 15.8 (6-22) Glucose 98 (70-100) mg/dL Calcium 9.1 (8.4-10.2) mg/dL Total Bilirubin 0.3 (0.2-1.3) mg/dL AST 29 (14-36) IU/L ALT 28 (<35) IU/L Alkaline Phosphatase 52 (38-126) U/L Total Protein 9.2 H (6.3-8.2) g/dL Albumin 5.0 (3.5-5.0) g/dL Globulin 4.2 H (1.7-4.1) g/dL Albumin/Globulin Ratio 1.2 (1.0-2.8) Lipase 161 (23-300) U/L Point of Care Testing Test Results Negative Urine Dip Bedside Urine Glucose Negative Bedside Urine Bilirubin - Negative Bedside Urine Ketone - Negative Urine Specific [place] 1.000 Bedside Urine Occult Blood - Negative Bedside Urine pH 6.0 Bedside Urine Protein - Negative Bedside Urine Urobilinogen - Negative Bedside Urine Nitrite - Negative Bedside Urine Leukocytes - Negative Esterase Point of care testing: Point of Care Testing Test Results Negative Urine Dip Bedside Urine Glucose Negative Bedside Urine Bilirubin - Negative Bedside Urine Ketone - Negative Urine Specific [place] 1.000 Bedside Urine Occult Blood - Negative Bedside Urine pH 6.0 Bedside Urine Protein - Negative Bedside Urine Urobilinogen - Negative Bedside Urine Nitrite - Negative Bedside Urine Leukocytes - Negative Esterase [facility] Narrative Medical decision making narrative: Patient is nontoxic appearing. Her urinalysis today does not show signs of infection however she is currently on antibiotics. She is having left-sided flank pain and still having quite a bit of dysuria. It is possible that the negative urinalysis today could be skewed because she is been on antibiotics. She is on Macrobid which potentially would not be appropriate for early pyelonephritis. I do not have a urine culture to base any decision on in the patient understands this. The plan would be is to have her stop the Macrobid and we will switch her to Bactrim. I will treat her as if she has pyelonephritis just based on her symptoms. She is tolerating oral intake and there is no indication for admission to the hospital today. We will hold on any radiologic studies for now. Patient was given return precautions and follow-up instructions. She expressed understanding and agreement. Discharge Plan Departure Patient Disposition: Home Clinical Impression: Pyelonephritis Instructions: DI for Kidney Infection Activity Restrictions/Additional Instructions: I do recommend that you stop taking the Macrobid and start taking the new antibiotic that you were prescribed today. This medication was sent to [facility]. Please take it as directed. Contact your medical department for follow-up. You can take Tylenol or ibuprofen for any fevers or body aches. Return to the emergency department for new or worsening symptoms. Prescriptions: New sulfamethoxazole-trimethoprim [Bactrim DS] 800-160 mg tablet 1 tab PO BID 14 Days Qty: 28 0RF No Action prenat.vits,jason,[id number] Tablet 1 tab PO DAILY triamcinolone acetonide 0.1 % cream 1 applic topical DAILY sumatriptan succinate [Imitrex] 50 mg tablet See Rx Instructions PO .COMPLEX Qty: 6 0RF Rx Instructions: take 1 tab at onset of headache; if no relief may repeat 1 tab after at least 2 hrs; max = 4 tabs/24 hr PO Referrals: Ivette Wasserman MD [Primary Care Provider] - Stand Alone Forms: Patient Portal/API
[2022-11-17 19:00] VITALS: BP 121/70; PULSE 90; O2SAT 100
[2022-11-17] MEDS: TRIMETH/SULFA 160/800 (DS) TABLET 1 TAB PO (19:14)
== END 2022-11-17 19:18 | disposition home or self-care (01) ==
PROVIDERS: Emergency Medicine; Emergency Provider Emergency Medicine; PCP Student in an Organized Health Care Education/Training Program
DX: N12 Tubulo-interstitial nephritis, not specified as acute or chronic (principal)
CPT/HCPCS: 36415; 80053; 81003; 81025; 83690; 85025; 99283; 99284

== ENCOUNTER 2022-11-18 07:38 | Emergency (ER) | payer OTHER, SELFPAY ==
[2021-10-03 18:11] VITALS: BMI 24.7
[2022-11-18 07:44] VITALS: BP 118/71; PULSE 89; RESP 20; TEMP 37; O2SAT 100; BMI 23.7
--- NOTE | 2022-11-18 07:49 | ED.ALLEREA ---
HPI - Allergic Reaction General Chief complaint: Allergic Reaction Stated complaint: here T-1 poss reaction to meds Time Seen by Provider: 11/18/22 07:49 Source: patient, RN notes reviewed and old records reviewed Mode of arrival: Ambulatory Limitations: no limitations History of Present Illness HPI narrative: This is a 32-year-old female with history of depression, patient presents with concern for reaction to medication. Patient has had recent flank pain and dysuria was started on Macrobid last week has not had any improvement and has had pain radiating down her leg as well. Patient states that she presented last night was changed from Macrobid to Bactrim. She had 1 dose last night. Patient states she woke up this morning she has redness and irritation of her eyes some swelling of her upper eyelids. She denies any swelling of her lips, tongue or mouth, no hives or rash otherwise. She denies any fevers. No chest pain, no shortness of breath, no nausea or vomiting. No diarrhea constipation, still having some dysuria, he continues to have some flank pain. She does note that the pain going down her left leg is now also little bit on her right. She denies any paresthesias numbness or tingling. No loss of sensation. Patient did not have any known drug allergies. She states she is not on any prescription medications currently other than was taking the Macrobid was stopped. She did have a urine culture at the [facility] on Thursday it is supposed to be completed but they have not gotten the results. Patient states had prior . No tobacco, occasional alcohol, no illicit. Related Data Home Medications Medication Instructions Recorded Confirmed prenat.vits,jason,[id number] 1 tab PO DAILY 08/07/21 03/13/22 triamcinolone acetonide 0.1 % 1 applic topical DAILY 08/08/21 03/13/22 topical cream Previous Rx's Medication Instructions Recorded sumatriptan succinate 50 mg tablet See Rx Instructions PO .COMPLEX 12/25/21 (Imitrex) Headache #6 tabs sulfamethoxazole 800 1 tab PO BID 14 days #28 tabs 11/17/22 mg-trimethoprim 160 mg tablet (Bactrim DS) cefixime 400 mg capsule 400 mg PO DAILY 10 days #10 caps 11/18/22 prednisone 20 mg tablet 40 mg PO DAILY #10 tabs 11/18/22 Allergies Allergy/AdvReac Type Severity Reaction Status Date / Time No Known Drug Allergies Allergy Verified 11/17/22 17:35 Review of Systems Review of Systems ROS Unobtainable: All systems reviewed & are unremarkable except as noted in HPI and below Patient History Medical History No significant past medical history Surgical History No history of previous surgery Family History Father Heart attack Grandmother Breast cancer Grandfather Diabetes mellitus Cancer Social History marital status: unmarried,living together number of children: 0 household members: significant other lives independently: Yes housing: apartment pets and animals: No 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) vanessa/hoahaoism: [employer] [place] seatbelt use: always water heater temp set < 120 deg: Yes working smoke detector in home: Yes fire extinguisher in home: Yes carbon monox detector in home: Yes firearms in home: No do you feel safe at home: Yes Smoking Status: Never smoker second hand exposure: No alcohol intake: former substance use type: does not use during the past year weight has: remained stable well-balanced diet: daily or most days daily servings fruits/ve-4 caffeine: Yes (200mg daily) Type(s) of exercise: additional (stretching) Smoking Status: Never smoker alcohol intake frequency: holidays/special occasions only Substance Use Type: does not use Exam Narrative Exam Narrative: GEN: well nourished, well appearing female, alert and oriented x 3, patient appears to be in mild distress. HEENT: Atraumatic, pupils are equal round reactive to light, extraocular movements are intact, patient's eyes are injected, she is some slight swelling of bilateral upper lids, patient does not have any crusting or drainage, nares are clear, TMs are clear with no fluid, there is no conjunctival pallor. Throat is clear without any exudates, erythema, tonsillar enlargement or uvular deviation, no swelling of oropharynx, lips or airway. No stridor, no hoarseness. HEART: Regular rate and rhythm without murmur, clicks, rubs. LUNGS:Lungs clear to auscultation, no wheezes, rales, crackles, chest moves symmetrically ABD:bowel sounds normal, soft, non-tender, no guarding, rebound, rigidity, no masses noted, no hepatosplenomegaly :No CVA tenderness BACK: No cervical, thoracic or lumbar vertebral point tenderness. Patient has normal range of motion. Patient's gait is normal. Muscle strength is 5/5 in lower extremities, sensation is intact in the lower extremities. MSCL: Non-tender, no muscle atrophy, muscles strength 5/5 upper and lower extremities, full range of motion, normal gait NEURO:CN 2-12 intact, sensation normal SKIN: See above. Initial Vital Signs Initial Vital Signs: Vital Signs Temperature 98.6 F 11/18/22 07:44 Pulse Rate 89 11/18/22 07:44 Respiratory Rate 20 11/18/22 07:44 Blood Pressure 118/71 11/18/22 07:44 Pulse Oximetry 100 11/18/22 07:44 Oxygen Delivery Method Room Air 11/18/22 07:44 Course Orders Ordered: Discontinued Medications Diphenhydramine HCl (Diphenhydramine 25 Mg Tablet) 50 mg PO NOW ONE Stop: 11/18/22 07:57 Last Admin: 11/18/22 08:03 Dose: 50 mg Documented By: MILLY Prednisone (Prednisone 20 Mg Tablet) 60 mg PO NOW ONE Stop: 11/18/22 07:57 Last Admin: 11/18/22 08:03 Dose: 60 mg Documented By: MPO Vital Signs Vital signs: Vital Signs - 8 hr 11/18/22 07:44 Temperature 98.6 F Pulse Rate 89 Respiratory Rate 20 Blood Pressure 118/71 Pulse Oximetry 100 Oxygen Delivery Method Room Air MDM - Allergic Reaction MDM Narrative Medical decision making narrative: 32-year-old female who comes in with recently diagnosed UTI/pyelonephritis patient was on Macrobid was not having improvement continued to have flank pain periods urine yesterday was negative but she is been on antibiotics there is urine culture supposedly completed but they have not been able to access it through their [employer] [facility]. Patient also has symptoms that could be low back pain she has some radiation down her left leg now including her right although she states not worse with movement she is no other red flag symptoms. Patient presents particularly today because she appears to have had a reaction to the Bactrim she is prescribed yesterday. She had 1 dose last night woke up this morning with swelling and redness of her eyes and lids. Patient given Benadryl and dose of prednisone. Attempted to obtain urine culture results. Attempted to call the [email or web address]. After some evaluation with patient she is actually states she started having symptoms in his low back pain after doing playing for 4-1/2 minutes, she since then had some numbness tingling down into her legs in the bottom of her feet. No other red flag symptoms no loss of bowel or bladder control, weakness. She has not had pain that she can control with Tylenol or ibuprofen. She would not had similar in the past. She denies any other trauma or injuries. Discussed with patient has some of her back pain maybe related to this as well as her paresthesias. Recommended to have her follow-up. We did review red flag symptoms and reasons to return emergently. She denies any of these currently. Discharge Plan Departure Patient Disposition: Home Clinical Impression: Allergic reaction Instructions: DI for Adverse Drug Reaction -- Allergic Activity Restrictions/Additional Instructions: You do appear to be having a reaction to the antibiotic prescribed. Please avoid Bactrim or sulfamethoxazole/trimethoprim in the future. As discussed some of the tingling in your legs and pain radiating down her legs is likely from her low back. If this is persisting please follow-up this week or the following week with primary care for further evaluation and treatment. You can take Tylenol up to a 1000 mg every 6 hours and ibuprofen up to 600 mg every 6 hours as needed for back or flank pain. I did send a prescription for antibiotics, please reach out to your physician or provider today to see if your urine culture has resulted to make sure this is the best choice for you. You can take Benadryl 1-2 tablets every 6 hours as needed for allergy symptoms. Take prednisone once daily until gone. Prescription sent to [facility] in [place]. Please return for fevers, new or worsening swelling of your face, lips, tongue, airway, difficulty swallowing, chest pain or shortness of breath, persistent vomiting, worsening back or flank pain, new numbness, weakness, loss of sensation or loss of bowel or bladder control or other new or concerning changes. Prescriptions: New cefixime 400 mg capsule 400 mg PO DAILY 10 Days Qty: 10 0RF prednisone 20 mg tablet 40 mg PO DAILY Qty: 10 0RF No Action prenat.vits,jason,[id number] Tablet 1 tab PO DAILY triamcinolone acetonide 0.1 % cream 1 applic topical DAILY sumatriptan succinate [Imitrex] 50 mg tablet See Rx Instructions PO .COMPLEX Qty: 6 0RF Rx Instructions: take 1 tab at onset of headache; if no relief may repeat 1 tab after at least 2 hrs; max = 4 tabs/24 hr PO sulfamethoxazole-trimethoprim [Bactrim DS] 800-160 mg tablet 1 tab PO BID 14 Days Qty: 28 0RF Referrals: Ivette Wasserman MD [Primary Care Provider] - Stand Alone Forms: Patient Portal/API
[2022-11-18] MEDS: diphenhydrAMINE 25 MG TABLET 50 MG PO (08:03)
[2022-11-18] MEDS: predniSONE 20 MG TABLET 60 MG PO (08:03)
== END 2022-11-18 08:47 | disposition home or self-care (01) ==
PROVIDERS: Emergency Provider Emergency Medicine; PCP Student in an Organized Health Care Education/Training Program
DX: T78.40XA Allergy, unspecified, initial encounter (principal)
CPT/HCPCS: 99283